=== PATIENT | female | born 1950 | race Caucasian/White ===

== ENCOUNTER 2022-08-31 11:45 | Observation (INO) | payer OTHER, MEDICARE, SELFPAY ==
[2022-08-31] VITALS (14 sets, daily range): BP systolic 104–164; BP diastolic 81–115; PULSE 68–96; RESP 13–23; TEMP 36.2–36.7; O2SAT 93–100; BMI 24.5
--- NOTE | 2022-08-31 12:08 | EKG12_ITS ---
Test Reason : EDEMA Blood Pressure : / mmHG Vent. Rate : 075 BPM Atrial Rate : 075 BPM P-R Int : 128 ms QRS Dur : 078 ms QT Int : 392 ms P-R-T Axes : 052 122 012 degrees QTc Int : 437 ms Normal sinus rhythm Possible Right ventricular hypertrophy Nonspecific ST abnormality Abnormal ECG Confirmed by CARLOS ALBERTO GARCIA, KRISTA ([id number]), associate professor of automation [employer] ([id number]) on 09/03/2022 10:50:01 A M Referred By: GWEN/SONIA Confirmed By:ETHAN CARCAMO MD
--- NOTE | 2022-08-31 12:10 | EDS_ITS ---
HPI History of Present Illness Chief Complaint: Edema Informant: patient Onset/Context/Timing Onset: Month(s) (1) Context: sudden Timing: Continuous Quality: Positive for Dyspnea on exertion Worsened by: Nothing Relieved by: - (Water pill) Associated Symptoms Negative for cough, rhinorrhea, post nasal drip, ear pain, fever, sore throat, chills or sweats Chest Pain: Positive for None Narrative Narrative: Patient presents with shortness of breath that has been getting worse over the last month. Patient states that her legs have gotten more swollen over the last month as well. Patient states her breathing is worse with going up stairs. Hong sheppard states she was started on a water pill and potassium recently. Patient states that helps a little bit. Patient states nothing makes her symptoms worse. Patient denies any fevers or chills. Patient denies any chest pain. Patient denies any nausea or vomiting. [facility] Medical History (Updated 08/31/22 @ 15:[address] Alessio Izquierdo, ) Arthritis Headaches, cluster History of cyst of breast Home Medications ibuprofen 200 mg capsule 200 mg PO Q6H 07/17/18 [History Last Taken Unknown] multivitamin (Daily Multi-Vitamin tablet) 1 tab PO DAILY 07/17/18 [History Last Taken Unknown] furosemide 20 mg tablet 20 mg PO DAILY 08/31/22 [History Last Taken Unknown] potassium chloride 20 mEq oral packet (Klor-Con) 20 meq PO DAILY 08/31/22 [History Last Taken Unknown] Allergy/AdvReac Type Severity Reaction Status Date / Time No Known Allergies Allergy Verified 08/31/22 12:07 Family History Other Hypertension Social History Smoking Status: Current every day smoker tobacco type: cigarettes alcohol intake: never substance use type: does not use what type of physical activity do you participate in: none ROS ROS ED Constitutional Constitutional ED: Denies chills or fever(s) Eyes Eyes: Denies blurry vision or change in vision ENT ENT ED: Denies rhinorrhea or sore throat Cardiovascular Cardiovascular: Denies chest pain or palpitations Respiratory/Chest Respiratory/Chest: Reports dyspnea and dyspnea on exertion; Denies cough Gastrointestinal Gastrointestinal: Denies nausea or vomiting Genitourinary Genitourinary ED: Denies dysuria or hematuria Musculoskeletal Musculoskeletal: Denies back pain or neck pain Integumentary Denies abscess or rash Neurologic Neurologic: Denies headache(s) or weakness Allergic/Immunologic Allergic/Immunologic ED: Denies mouth swelling or urticaria EXAM Physical Exam Const Vital Signs: 08/31/22 11:47 08/31/22 11:59 08/31/22 12:00 Temperature 97.1 F L Temperature Source Temporal Pulse Rate 82 79 Respiratory Rate 18 21 H Respiratory Effort Short of Breath Respiratory Depth Normal Respiratory Pattern Normal Blood Pressure 104/81 H 104/81 H Blood Pressure Mean 88 88 Pulse Ox 95 98 Oxygen Delivery Method Nasal Cannula Nasal Cannula Nasal Cannula Oxygen Flow Rate (L/min) 4 4 4 08/31/22 12:07 08/31/22 12:09 08/31/22 12:54 Temperature Temperature Source Pulse Rate 87 Respiratory Rate 19 H Respiratory Effort Short of Breath Respiratory Depth Respiratory Pattern Normal Blood Pressure 160/92 H Blood Pressure Mean 114 Pulse Ox 97 100 Oxygen Delivery Method Nasal Cannula Nasal Cannula Oxygen Flow Rate (L/min) 4 4 08/31/22 13:11 08/31/22 14:07 08/31/22 15:02 Temperature Temperature Source Pulse Rate 88 82 87 Respiratory Rate 21 H 22 H 23 H Respiratory Effort Respiratory Depth Respiratory Pattern Blood Pressure 157/115 H 162/97 H 153/99 H Blood Pressure Mean 129 118 117 Pulse Ox 100 98 Oxygen Delivery Method Nasal Cannula Nasal Cannula Nasal Cannula Oxygen Flow Rate (L/min) 4 4 4 08/31/22 16:06 08/31/22 16:29 Temperature 97.4 F L Temperature Source Temporal Pulse Rate 96 87 Respiratory Rate 13 15 Respiratory Effort Respiratory Depth Respiratory Pattern Blood Pressure 164/102 H 155/96 H Blood Pressure Mean 122 115 Pulse Ox 94 93 Oxygen Delivery Method Nasal Cannula Nasal Cannula Oxygen Flow Rate (L/min) 4 4 Positive well nourished and well developed General Appearance ED: well developed and NAD HEENT Reports moist mucous membranes Neck supple and no JVD Resp normal respiratory effort Auscultation: rales bilateral 1/3 way up Cardio regular rate and regular rhythm GI normal to inspection, nondistended, normoactive bowel sounds and non-tender Palpation: soft Extremity normal to inspection General Extremety ED: Yes edema and tenderness General Extremity: edema bilateral lower extremity Details: moderate Neuro oriented x3, CN's II-XII intact bilaterally and no sensory deficits noted Sensorium / Orientation: alert Motor Exam: strength 5/5 throughout Psych mental status grossly normal Skin no rashes or lesions noted MDM MDM MDM Narrative Medical decision making narrative: Differential diagnosis includes congestive heart failure, cardiac dysrhythmia, cardiac ischemia, pneumonia, pneumothorax, and peripheral edema. EKG will be obtained to assess for cardiac dysrhythmia and cardiac ischemia. CBC will be obtained to assess for leukocytosis and anemia. Basic metabolic profile will be obtained to assess for electrolyte abnormality and renal function. BNP will be obtained to assess for congestive heart failure. Chest x-ray will be obtained to assess for congestive heart failure and pneumonia. Lab Data Attestation: I reviewed the patient's lab results. Lab results narrative: CBC was reviewed. White blood cell count was within normal limits. Hemoglobin was 16.4 and hematocrit was 51.8. Basic metabolic profile was reviewed and was within normal limits. High-sensitivity troponin was reviewed and was slightly elevated at 142. BNP was reviewed and was elevated at 917.9. Labs: Laboratory Results - last 24 hr 08/31/22 08/31/22 08/31/22 11:56 11:56 11:56 WBC 5.8 RBC 5.08 Hgb 16.4 H Hct 51.8 H MCV 102.0 H MCH 32.3 H MCHC 31.7 L RDW Std Deviation 58.5 H RDW Coeff of Fausto 15.8 H Plt Count 290 MPV 9.7 Immature Gran % (Auto) 0.500 Neut % (Auto) 61.6 Lymph % (Auto) 28.1 Benson % (Auto) 8.6 Eos % (Auto) 0.7 Baso % (Auto) 0.5 Absolute Neuts (auto) 3.6 Absolute Lymphs (auto) 1.64 Nucleated RBC % 0 Sodium 136 Potassium 4.5 Chloride 102 Carbon Dioxide 32.0 Anion Gap 2 L BUN 17 Creatinine 0.88 Estim Creat Clear Calc 49.21 Est GFR (MDRD) Af Amer 82 Est GFR (MDRD) Non-Af 68 BUN/Creatinine Ratio 19.4 Glucose 93 Calcium 8.9 Troponin I High Sens 142 H* B-Natriuretic Peptide 917.9 H Radiography Chest X-Ray - ED: 1 View, Read by ED Physician, Read by Radiologist and Chronic Changes Diagnostic Testing: Clinical Impression(s) from Imaging Studies Chest X-Ray 08/31/22 12:16 IMPRESSION: Hyperinflation. Interstitial scarring. Electronically Signed: Torsten Murdock MD at 13:18 EDT , Portable 1 view chest x-ray was obtained. On my independent interpretation, lung smiley are hyperinflated with interstitial scarring. There is normal cardiac silhouette. Bony thorax is normal. There is no acute process noted. Radiologist also interpreted the x-ray and agrees. EKG Initial EKG: Attestation: I personally reviewed and interpreted this EKG as follows: Interpretation: Sinus Rhythm (75) and Non-Specific ST Changes Comments: EKG was obtained. On my independent interpretation, it showed a normal sinus rhythm with a rate of 75. SD interval, QRS interval, and QTc intervals were all normal. [place] was normal. There are nonspecific ST-T wave changes. Prior EKG tracings: not available for review Prior: No Prior Treatment and Re-Evaluation :: Patient was given a dose of Lasix here. Patient was given a dose of aspirin. Patient was advised of her findings. Patient was feeling better on reevaluation. Patient was having large amount of urine output. Patient was advised of the need for hospitalization. Patient is agreeable with this. Case was discussed with the hospitalist. She will be in to evaluate the patient for admission for congestive heart failure. Patient understands and is agreeable with the plan. All questions were answered. Discharge Plan Dx/Rx/DC Orders Clinical Impression: Congestive heart failure, Hypoxia Disposition Disposition: Acute Care Hospital [facility]
--- NOTE | 2022-08-31 12:16 | RAD_ITS ---
STUDY: X-RAY CHEST REASON FOR EXAM: Female, 72 years old. Dyspnea TECHNIQUE: PA and lateral views of the chest. COMPARISON: None. FINDINGS: EKG electrodes are seen. There are interstitial fibrotic changes of the lungs. There is no demonstrated pleural abnormality. Normal size heart. Normal mediastinum and mansoor. Normal visualized pulmonary arteries. Normal visualized aortic arch and descending thoracic aorta. There is demineralization of the osseous structures. Normal visualized ribs, clavicles, and shoulders. There is no demonstrated abnormality of the visualized soft tissue structures of the upper abdomen. RAD/Chest PA and Lateral IMPRESSION: Hyperinflation. Interstitial scarring. Electronically Signed: Torsten Murdock MD at 13:18 EDT ,
[2022-08-31 12:22] LABS: Absolute Lymphocyte Count 1.64 X10^3/uL (0.83-4.51); Absolute Neutrophil Count 3.6 X10^3/uL (2.0-7.7); Basophil# 0.03 X10^3/uL; Basophil% 0.5 % (0-1); Eosinophil# 0.04 X10^3/uL; Eosinophils% 0.7 % (0-5); Hematocrit 51.8 % (37-47); Hemoglobin 16.4 g/dL (12.0-15.0); Lymphocyte # 1.64 X10^3/ul (0.83-4.51); Lymphocyte % 28.1 % (19-41); Mean Corp Hgb Conc 31.7 g/dL (32-36); Mean Corpuscular Hgb 32.3 pg (27.0-32.0); Mean Platelet Vol. 9.7 fl (6.2-12.0); Monocyte% 8.6 % (0-10); NRBC Flagged by Analyzer 0 % (0-5); Neutrophil % 61.6 % (47-70); Platelet Count 290 K/mm3 (150-450); RBC Distribution Width CV 15.8 % (11.6-14.6); RBC Distribution Width SD 58.5 fl (35.1-43.9); Red Blood Count 5.08 M/mm3 (4.2-5.4); White Blood Count 5.8 K/mm3 (4.4-11.0)
[2022-08-31 12:40] LABS: Anion Gap 2 (5-15); BUN 17 mg/dL (7-18); BUN/Creat Ratio 19.4 RATIO (10-20); Calcium,Total 8.9 mg/dL (8.5-10.1); Chloride 102 mmol/L (98-107); Creatinine, Serum 0.88 mg/dL (0.55-1.02); EST Glomerular Filtration Rate 68 mL/min (>60); Est Glom Filt Rate - Afr Amer 82 mL/min (>60); Estimated Creatinine Clearance 49.21 ml/min; Glucose 93 mg/dL (74-106); Potassium 4.5 mmol/L (3.5-5.1); Sodium Level 136 mmol/L (136-145); Troponin-I HS 142 pg/mL (3.0-54.0)
[2022-08-31 12:42] LABS: BNP,B-Type NATRIURETIC PEPTIDE 917.9 pg/mL (0-100)
[2022-08-31] MEDS: Furosemide 40 MG/4 ML Vial IV (14:29)
[2022-08-31] MEDS: Aspirin 81 MG TAB.CHEW 324 MG PO (16:32)
--- NOTE | 2022-08-31 17:32 | PCM.HP.STD ---
HPI - General General Date of Admission: 08/31/22 Date of Service: 08/31/22 Chief Complaint: Edema HPI Narrative KATALINA BIGGS, is a 72 F with no significant PMH who presents to the ED from her PCP's office due to hypoxia. The patient reports she hasn't had a doctor in several years. She went to [place] ED last month on July 25 with complaints of lower extremity edema which had been going on for about a week prior. She was prescribed lasix 20mg daily and oral potassium and discharged home. The patient reports she completed the prescription and did notice improvement in her symptoms while taking it. Once she ran out of the prescription, however, she noticed the leg swelling was worse again. The patient denied any other symptoms, however, upon further questioning, admitted to feeling more short of breath with walking up the 7 stairs to get to work in the mornings. The patient reports that has been going on for the same time period. She has not been checking her weights at all. She reports she has recently been trying to monitor her sodium intake. The patient reports she went to an urgent care on 08/17 and had her prescription refilled. She went to see Dr. Kimball this morning to establish care. While in the office, the patient was noted to be severely hypoxic, saturating in the 70s-80s with ambulation and low 80s with rest. She was then transferred to the hospital for further management. In the ED, the patient was given a dose of Lasix. Labs suggested a new onset CHF and she was admitted for further management. The patient reports she does feel better with the lasix and has been voiding well. [facility] Medical History (Updated 08/31/22 @ 17:[address] Ekaterina Gao MD) Arthritis Headaches, cluster History of cyst of breast Home Medications ibuprofen 200 mg capsule 400 mg PO Q6H 07/17/18 [History Last Taken 08/31/22 09:00] multivitamin (Daily Multi-Vitamin tablet) 1 tab PO DAILY 07/17/18 [History Last Taken 08/31/22 09:00] furosemide 20 mg tablet 20 mg PO DAILY 08/31/22 [History Last Taken 08/31/22 09:00] potassium chloride 20 mEq oral packet (Klor-Con) 20 meq PO DAILY 08/31/22 [History Last Taken 08/31/22 09:00] Allergy/AdvReac Type Severity Reaction Status Date / Time No Known Allergies Allergy Verified 08/31/22 12:07 Family History (Updated 08/31/22 @ 17:[address] Ekaterina Gao MD) Other No pertinent family history Surgical History (Updated 08/31/22 @ 17:[address] Ekaterina Gao MD) History of surgical procedure Social History (Updated 08/31/22 @ 17:[address] Ekaterina Gao MD) household members: none current occupational status: employed current occupation: Works at [employer] Smoking Status: Current every day smoker tobacco type: cigarettes Smoking packs per day: 0.5 Smoking cigarettes per day: 10.0 Years smoked: 50 Smoking pack-years: 25.00 Electronic Cigarette Use: not used alcohol intake: never substance use type: does not use what type of physical activity do you participate in: none do you feel safe at home: Yes ROS Constitutional Constitutional: Denies change in weight, fatigue, fever(s) or weakness Eyes Eyes: Denies change in vision ENT HEENT: Reports headache(s); Denies abnormal hearing, nasal congestion or sore throat Cardiovascular Cardiovascular: Reports dyspnea on exertion and edema; Denies chest pain, lightheadedness, palpitations or syncope Respiratory/Chest Respiratory/Chest: Reports cough and dyspnea; Denies productive cough or wheezing Gastrointestinal Gastrointestinal: Denies abdominal pain, constipation, diarrhea, nausea or vomiting Genitourinary Genitourinary: Denies burning urination, difficulty urinating or dysuria Neurologic Neurologic: Reports headache(s); Denies abnormal gait, dizziness, numbness or tingling Psychiatric Psychiatric: Denies anxiety, depression or suicidal ideation Vital Signs Vital Signs Vital Signs: 08/31/22 11:47 08/31/22 11:59 08/31/22 12:00 Temperature 97.1 F L Temperature Source Temporal Pulse Rate 82 79 Respiratory Rate 18 21 H Respiratory Effort Short of Breath Respiratory Depth Normal Respiratory Pattern Normal Blood Pressure 104/81 H 104/81 H Blood Pressure Mean 88 88 Pulse Ox 95 98 Oxygen Delivery Method Nasal Cannula Nasal Cannula Nasal Cannula Oxygen Flow Rate (L/min) 4 4 4 08/31/22 12:07 08/31/22 12:09 08/31/22 12:54 Temperature Temperature Source Pulse Rate 87 Respiratory Rate 19 H Respiratory Effort Short of Breath Respiratory Depth Respiratory Pattern Normal Blood Pressure 160/92 H Blood Pressure Mean 114 Pulse Ox 97 100 Oxygen Delivery Method Nasal Cannula Nasal Cannula Oxygen Flow Rate (L/min) 4 4 08/31/22 13:11 08/31/22 14:07 08/31/22 15:02 Temperature Temperature Source Pulse Rate 88 82 87 Respiratory Rate 21 H 22 H 23 H Respiratory Effort Respiratory Depth Respiratory Pattern Blood Pressure 157/115 H 162/97 H 153/99 H Blood Pressure Mean 129 118 117 Pulse Ox 100 98 Oxygen Delivery Method Nasal Cannula Nasal Cannula Nasal Cannula Oxygen Flow Rate (L/min) 4 4 4 08/31/22 16:06 08/31/22 16:29 Temperature 97.4 F L Temperature Source Temporal Pulse Rate 96 87 Respiratory Rate 13 15 Respiratory Effort Respiratory Depth Respiratory Pattern Blood Pressure 164/102 H 155/96 H Blood Pressure Mean 122 115 Pulse Ox 94 93 Oxygen Delivery Method Nasal Cannula Nasal Cannula Oxygen Flow Rate (L/min) 4 4 Weight Weight: 138 lb 3.677 oz Body Mass Index (BMI) 24.5 Physical Exam Const alert, oriented x3 and no apparent distress General Appearance: cooperative HEENT normocephalic, head/scalp atraumatic and moist oral mucous membranes Eyes PERRL and conjunctivae normal Resp normal respiratory effort and no use of accessory muscles Auscultation: Negative for crackles, rales, rhonchi or wheezes Cardio regular rate and regular rhythm; Negative for no murmurs GI normal to inspection, nondistended, normoactive bowel sounds, soft to palpation and non-tender Extremity Extremity Narrative: 1+ pitting edema in bilateral lower extremities, mild tenderness to palpation Clubbing of fingers bilaterally Neuro oriented x3 Sensorium / Orientation: awake, alert, oriented to person, oriented to place and oriented to time Psych affect normal Results Lab / Micro Data Attestation: I reviewed the patient's lab results. Result Diagrams: 08/31/22 11:56 08/31/22 11:56 Labs: Laboratory Results - last 24 hr 08/31/22 11:56: WBC 5.8, RBC 5.08, Hgb 16.4 H, Hct 51.8 H, MCV 102.0 H, MCH 32.3 H, MCHC 31.7 L, RDW Std Deviation 58.5 H, RDW Coeff of Fausto 15.8 H, Plt Count 290, MPV 9.7, Immature Gran % (Auto) 0.500, Neut % (Auto) 61.6, Lymph % (Auto) 28.1, Kerr % (Auto) 8.6, Eos % (Auto) 0.7, Baso % (Auto) 0.5, Absolute Neuts (auto) 3.6, Absolute Lymphs (auto) 1.64, Nucleated RBC % 0 08/31/22 11:56: Sodium 136, Potassium 4.5, Chloride 102, Carbon Dioxide 32.0, Anion Gap 2 L, BUN 17, Creatinine 0.88, Estim Creat Clear Calc 49.21, Est GFR (MDRD) Af Amer 82, Est GFR (MDRD) Non-Af 68, BUN/Creatinine Ratio 19.4, Glucose 93, Calcium 8.9, Troponin I High Sens 142 H* 08/31/22 11:56: B-Natriuretic Peptide 917.9 H Radiology Impression Chest X-Ray 08/31/22 12:16 IMPRESSION: Hyperinflation. Interstitial scarring. Electronically Signed: Torstne Murdock MD at 13:18 EDT , Assessment & Plan Assessment/Plan (1) New onset of congestive heart failure: PLAN: The patient demonstrates findings suggestive of new onset CHF with an elevated BNP and troponin level. EKG was done in the ED which showed NSR with possible RVH and nonspecific T waves abnormalities. Will admit to observation. Will cycle troponins and place the patient on IV lasix. Will order an echo for the morning to assess heart function. The patient's blood pressure is slightly elevated, will also initiate lisinopril and aspirin. Will get follow up labs including a lipid panel in am. Cardiac diet and strict I&Os with daily weights. (2) Acute respiratory failure with hypoxia: PLAN: As above. The patient is currently saturating well on 4L. Will wean as able. She does have hyperinflation and a long history of smoking suggestive of COPD. She will benefit from a PFT as an outpatient. (3) Elevated blood pressure reading: PLAN: As above. Will monitor blood pressure closely and adjust as necessary. Discussed monitoring salt intake. PLAN: Plan FULL CODE - patient wishes to think about code status DVT prophylaxis - Encourage ambulation Disposition - The patient is hemodynamically stable and anxious to go home when able. Will treat as above. If she remains stable, I anticipate she may be able to be discharged home in 24-48 hours. Charges/Coding Visit Charges Inpatient E&M: 53503 Init Hosp L2
--- NOTE | 2022-08-31 17:39 | ECHOD_ITS ---
Reason For Study: CONGESTIVE HEART FAILURE Procedure This was a 2D Doppler, Color Flow transthoracic echocardiogram. Exam performed portable in patient room. Left Ventricle Normal LV size. The estimated ejection fraction is 60 %. No evidence for diastolic dysfunction. No regional wall motion abnormalities noted. Right Ventricle Severely dilated right ventricle. Mildly decreased right ventricular systolic function. Atria Normal left atrium. The right atrium is mildly enlarged. No doppler evidence for ASD. Mitral Valve There is no mitral valve stenosis. No mitral valve insufficiency. Tricuspid Valve There is no tricuspid stenosis. Mild tricuspid valve insufficiency. Pulmonary artery systolic pressure is 30-35 mmHg. Aortic Valve Trisinus/trileaflet aortic valve. There is no aortic stenosis. No aortic valve insufficiency. Pulmonic Valve There is no pulmonic valvular stenosis. No pulmonic valve insufficiency. Great Vessels Normal aortic root. Pericardium/Pleural Trivial pericardial effusion. MMode/2D Measurements & Calculations LVIDd: 3.7 cm IVSd: 1.4 cm Ao root diam: 3.0 cm LVIDs: 2.2 cm LVPWd: 1.1 cm RVDd: 3.9 cm FS: 40.9 % LAV(MOD-bp): 28.5 ml LVAd ap4: 16.7 cm2 LVAd ap2: 18.7 cm2 LAV(MOD-bp) Indexed: 17.3 ml/m2 LVLd ap4: 6.1 cm LVLd ap2: 6.6 cm LAV(MOD-sp2): 24.0 ml EDV(MOD-sp4): 38.6 ml EDV(MOD-sp2): 43.5 ml LAV(MOD-sp4): 31.4 ml EDV(sp4-el): 38.5 ml EDV(sp2-el): 45.0 ml LVAs ap4: 9.1 cm2 LVAs ap2: 10.6 cm2 LVLs ap4: 5.3 cm LVLs ap2: 5.6 cm ESV(MOD-sp4): 14.5 ml ESV(MOD-sp2): 19.2 ml ESV(sp4-el): 13.4 ml ESV(sp2-el): 16.9 ml EF(MOD-sp4): 62.5 % EF(MOD-sp2): 55.8 % EF(sp4-el): 65.3 % SV(MOD-sp4): 24.1 ml SV(MOD-sp2): 24.3 ml SV(sp4-el): 25.2 ml LA dimension(2D): 3.5 cm LA A4 area: 14.5 cm2 RA A4 area: 15.9 cm2 Time Measurements MV dec time: 0.30 sec Doppler Measurements & Calculations MV E max cameron: 46.1 cm/sec Lat Peak E' Cameron: 6.0 cm/sec Med Peak E' Cameron: 6.5 cm/sec MV A max cameron: 81.3 cm/sec E/E' lat: 7.7 E/E' med: 7.0 MV E/A: 0.57 MV dec slope: 155.4 cm/sec2 Ao V2 max: 137.2 cm/sec LV V1 max: 102.4 cm/sec Ao max P.5 mmHg LV V1 max P.2 mmHg Ao V2 mean: 88.6 cm/sec LV V1 mean P.7 mmHg Ao mean P.6 mmHg LV V1 mean: 59.1 cm/sec Ao V2 VTI: 23.6 cm LV V1 VTI: 15.1 cm AV (velocity ratio): 0.64 PA V2 max: 73.7 cm/sec TR max cameron: 277.2 cm/sec TR max P.7 mmHg ECHO/Echo Complete Interpretation Summary The estimated ejection fraction is 60 %. No evidence for diastolic dysfunction. The right atrium is mildly enlarged. Severely dilated right ventricle. Mildly decreased right ventricular systolic function Mild tricuspid valve insufficiency. Trivial pericardial effusion. Ordering Physician: Ekaterina Gao Performed By: Yessy Garay RDCS
[2022-08-31] MEDS: Lisinopril 10 MG Tablet PO (18:31)
[2022-08-31 19:02] LABS: Troponin-I HS 125 pg/mL (3.0-54.0)
[2022-09-01] VITALS (8 sets, daily range): BP systolic 119–136; BP diastolic 71–92; PULSE 75–96; RESP 16–18; TEMP 36.2–37; O2SAT 90–97; BMI 24.5
[2022-09-01 06:06] LABS: Absolute Lymphocyte Count 2.08 X10^3/uL (0.83-4.51); Absolute Neutrophil Count 3.9 X10^3/uL (2.0-7.7); Basophil# 0.04 X10^3/uL; Basophil% 0.6 % (0-1); Eosinophil# 0.12 X10^3/uL; Eosinophils% 1.8 % (0-5); Hematocrit 50.1 % (37-47); Hemoglobin 15.8 g/dL (12.0-15.0); Lymphocyte # 2.08 X10^3/ul (0.83-4.51); Lymphocyte % 30.5 % (19-41); Mean Corp Hgb Conc 31.5 g/dL (32-36); Mean Corpuscular Hgb 31.9 pg (27.0-32.0); Mean Platelet Vol. 9.4 fl (6.2-12.0); Monocyte# 0.65 X10^3/uL; Monocyte% 9.5 % (0-10); NRBC Flagged by Analyzer 0 % (0-5); Neutrophil # 3.91 X10^3/uL (2.7-7.7); Neutrophil % 57.5 % (47-70); Platelet Count 299 K/mm3 (150-450); RBC Distribution Width CV 15.5 % (11.6-14.6); RBC Distribution Width SD 56.3 fl (35.1-43.9); Red Blood Count 4.96 M/mm3 (4.2-5.4); White Blood Count 6.8 K/mm3 (4.4-11.0)
[2022-09-01 06:32] LABS: ALB/GLOB Ratio 0.6 RATIO (0.9-2.4); AST(SGOT) 23 U/L (15-37); Alanine Aminotransfer ALT/SGPT 35 U/L (13-56); Albumin, Serum 2.5 g/dL (3.2-5.0); Alkaline Phosphatase 118 U/L (45-117); Anion Gap 5 (5-15); BUN 18 mg/dL (7-18); BUN/Creat Ratio 22.8 RATIO (10-20); Calcium,Total 8.4 mg/dL (8.5-10.1); Chloride 106 mmol/L (98-107); Cholesterol 106 mg/dL (200); Creatinine, Serum 0.79 mg/dL (0.55-1.02); EST Glomerular Filtration Rate 76 mL/min (>60); Est Glom Filt Rate - Afr Amer 92 mL/min (>60); Globulin 4.2 g/dL (2.2-4.2); Glucose 87 mg/dL (74-106); High Density Lipoprotein 32 mg/dL; Magnesium 2.4 mg/dL (1.6-2.6); Potassium 4.6 mmol/L (3.5-5.1); Protein, Total 6.7 g/dL (6.4-8.2); Sodium Level 139 mmol/L (136-145); Triglycerides 56 mg/dL; Very Low Density Lipoprotein 11 mg/dL (5-40)
[2022-09-01 07:47] LABS: Troponin-I HS 111 pg/mL (3.0-54.0)
[2022-09-01] MEDS: Furosemide 40 MG/4 ML Vial IV ×2 (08:16→23:35)
[2022-09-01] MEDS: Potassium Chloride Oral Tablet 20 MEQ PO (08:16)
[2022-09-01] MEDS: Lisinopril 10 MG Tablet PO (08:16)
[2022-09-01] MEDS: Multivitamins,Therapeutic Tablet 1 TABLET PO (08:16)
[2022-09-01] MEDS: Aspirin E.C. 81 MG Tablet PO (08:16)
--- NOTE | 2022-09-01 11:27 | PN_ITS ---
Subjective Subjective Patient seen and examined. He was admitted for [facility] office on account of hypoxia. She had been having lower extremity edema as well and was prescribed p.o. Lasix but said his symptoms have not improved. The swelling worsened after she stopped taking the Lasix. She had exertional dyspnea as well. She went to see a PCP to establish care and because she was hypoxic she was sent into the ED. She was saturating at 70 to 80% with ambulation in the PCPs office. BNP was elevated on admission. Patient tells me she feels good this morning. She feels her breathing is improving and states he does not have any while she is wearing oxygen. She denies any chest pain or palpitations, dizziness, nausea vomiting or any other symptoms. Review of systems otherwise negative. She has remained hemodynamically stable. Objective Data Objective Data Vital Signs: Vital Signs Temp Pulse Resp BP Pulse Ox O2 Del Method O2 Flow Rate 97.8 F 88 18 136/71 H 97 Room Air 4 09/01/22 10:00 09/01/22 10:00 09/01/22 10:00 09/01/22 10:09/01/22 10:09/01/22 10:00 09/01/22 07:36 Oxygen Flow Rate (L/min) 4 Oxygen Delivery Method Room Air Weight: 138 lb 14.259 oz Body Mass Index (BMI) 24.5 Intake & Output: Intake and Output for Last 24 Hours 08/30/22 08/31/22 09/01/22 23:59 23:59 23:59 Intake Total 320 / 320 Output Total 1800 / 1800 Balance -1480 / -1480 Lab / Micro Data Result Diagrams: 09/01/22 05:45 09/01/22 05:45 Labs: Laboratory Results - last 24 hr 08/31/22 11:56: WBC 5.8, RBC 5.08, Hgb 16.4 H, Hct 51.8 H, MCV 102.0 H, MCH 32.3 H, MCHC 31.7 L, RDW Std Deviation 58.5 H, RDW Coeff of Fausto 15.8 H, Plt Count 290, MPV 9.7, Immature Gran % (Auto) 0.500, Neut % (Auto) 61.6, Lymph % (Auto) 28.1, [place] % (Auto) 8.6, Eos % (Auto) 0.7, Baso % (Auto) 0.5, Absolute Neuts (auto) 3.6, Absolute Lymphs (auto) 1.64, Nucleated RBC % 0 08/31/22 11:56: Sodium 136, Potassium 4.5, Chloride 102, Carbon Dioxide 32.0, Anion Gap 2 L, BUN 17, Creatinine 0.88, Estim Creat Clear Calc 49.21, Est GFR (MDRD) Af Amer 82, Est GFR (MDRD) Non-Af 68, BUN/Creatinine Ratio 19.4, Glucose 93, Calcium 8.9, Troponin I High Sens 142 H* 08/31/22 11:56: B-Natriuretic Peptide 917.9 H 08/31/22 18:20: Troponin I High Sens 125 H* 09/01/22 05:45: WBC 6.8, RBC 4.96, Hgb 15.8 H, Hct 50.1 H, MCV 101.0 H, MCH 31.9, MCHC 31.5 L, RDW Std Deviation 56.3 H, RDW Coeff of Fausto 15.5 H, Plt Count 299, MPV 9.4, Immature Gran % (Auto) 0.100, Neut % (Auto) 57.5, Lymph % (Auto) 30.5, [place] % (Auto) 9.5, Eos % (Auto) 1.8, Baso % (Auto) 0.6, Absolute Neuts (auto) 3.9, Absolute Lymphs (auto) 2.08, Nucleated RBC % 0 09/01/22 05:45: Sodium 139, Potassium 4.6, Chloride 106, Carbon Dioxide 28.0, Anion Gap 5, BUN 18, Creatinine 0.79, Estim Creat Clear Calc 43.30, Est GFR (MDRD) Af Amer 92, Est GFR (MDRD) Non-Af 76, BUN/Creatinine Ratio 22.8 H, Glucose 87, Calcium 8.4 L, Magnesium 2.4, Total Bilirubin 0.80, AST 23, ALT 35, Alkaline Phosphatase 118 H, Total Protein 6.7, Albumin 2.5 L, Globulin 4.2, Albumin/Globulin Ratio 0.6 L, Triglycerides 56, Cholesterol 106, LDL Cholesterol 63, VLDL Cholesterol 11, HDL Cholesterol 32 L 09/01/22 05:45: Troponin I High Sens 111 H Radiography Diagnostic Testing: Radiology Impression Chest X-Ray 08/31/22 12:16 IMPRESSION: Hyperinflation. Interstitial scarring. Electronically Signed: Torsten Murdock MD at 13:18 EDT , Physical Exam Const alert, oriented x3 and no apparent distress General Appearance: cooperative HEENT normocephalic, head/scalp atraumatic, moist oral mucous membranes and oropharynx normal Eyes PERRL and EOMs intact bilaterally Lymph Lymphatic: no lymphadenopathy noted and no lymphedema noted Resp Resp Narrative: mildly diminished breath sounds bibasally, no wheezes, few crackles. On room air. Cardio regular rate, regular rhythm, S1 normal heart sound, S2 normal heart sound and no murmurs GI normal to inspection, nondistended, normoactive bowel sounds, soft to palpation and non-tender Extremity normal capillary refill and no clubbing, cyanosis or edema Extremity Narrative: extensive bilateral clubbing of upper extremities General Extremity: clubbing Skin General Skin Exam: no breakdown Neuro CN's II-XII intact bilaterally, no focal motor deficits, no sensory deficits noted and deep tendon reflexes 2+ bilaterally Motor Exam: strength 5/5 throughout Psych thought process normal and cooperative Appearance: appropriate Assessment & Plan Assessment/Plan (1) Acute respiratory failure with hypoxia: (2) New onset of congestive heart failure: (3) Congestive heart failure: PLAN: Plan #Hypoxia due to new onset heart failure * States her breathing is much more improved now. She was on 2 L of oxygen at night this morning but has been weaned down to room air. * 2D echo ordered. She has been diuresed with IV Lasix. * I do think patient also likely has COPD as chest x-ray showed hyperinflation and she has extensive clubbing of both hands. * Continue diuresis with IV Lasix. Will benefit from pulmonary function tests on outpatient basis and will need to see pulmonology for that to formally diagnose her with COPD * Breathing treatments with bronchodilators. * BNP was elevated at 917.9. * * #Elevated troponin: * Initial troponin was 142 and trended down to 111. * This was likely due to hypoxia. 2D echo ordered. May also be due to heart failure. * I do think it is reasonable to get a cardiology consult but I will do a CTA of the chest to rule out any possible PE. * she will also benefit from stress test to evaluate the heart * #Elevated blood pressure: Improved. Started on lisinopril #Probable COPD. Likely contributing to her shortness of breath. Will start on IV Solu-Medrol. Breathing treatments of bronchodilators. DVT prophylaxis: start lovenox Charges/Coding Visit Charges Inpatient E&M: 48620 Subs Hosp L2
--- NOTE | 2022-09-01 11:46 | CT_ITS ---
STUDY: CTA CHEST REASON FOR EXAM: Female, 72 years old. pulmonary embolism RADIATION DOSAGE (If Supplied By Facility): CTDIvol = ( 9.41 ) mGy, DLP = ( 173.50 ) mGycm TECHNIQUE: The examination was performed with the intravenous administration of IV 100mL Isovue-370. Post-processing of the angiographic images was performed, with multiplanar reformation and 3D reconstruction. Individualized dose optimization techniques were used for this CT. COMPARISON: FINDINGS: Normal enhancement of the main pulmonary artery and right and left pulmonary arteries. Normal enhancement of the bilateral peripheral pulmonary arteries. There is no demonstrated pulmonary embolism. Normal thoracic aorta and visualized great vessels. There is no demonstrated aortic dissection. Cardiomegaly. Small pericardial effusion versus mild pericardial thickening. Normal mediastinum. Normal hilar regions. Normal visualized trachea and bronchi. The lungs are well expanded. There is a mild biapical fibrosis. There is moderate centrilobular emphysema within the upper lobes. There is moderate fibrosis peripherally in the right middle lobe and lingula with moderate centrilobular emphysema in the right middle lobe and lingula. There is a confluent density in the right lower lobe posteriorly 2.71 cm which could represent dense infiltrate or mass. There is a severe bronchiectasis and fibrosis throughout both lower lobes. Normal pleura. There is a breast tissue versus mass within the left breast measuring 2.98 x 1.91 cm. Wedge deformities T9 and T11 with degenerative changes mid and lower thoracic spine. Normal visualized upper abdomen. CT/CTA Chest W/WO Contrast IMPRESSION: No demonstrated pulmonary embolism or arterial dissection. COPD and pulmonary fibrosis detailed above. Right lower lobe mass versus dense infiltrate 2.71 cm. Mild cardiomegaly. Small pericardial effusion versus mild pericardial thickening. Moderate wedge deformities T9 and T11 with underlying degenerative changes. Electronically Signed: Gerardo Francis MD, MAYE at 13:54 EDT ,
--- NOTE | 2022-09-01 13:55 | CASEMGMT ---
RN?CM?CIRCUIT BREAKER MECHANIC?CM?to room to meet with patient for initial transition planning/care coordination?assessment.?RN?CM?introduced self and role at [facility].? Pt voices understanding and consents to?assessment?at this time.? Pt sitting up in chair in no distress at this time.? Pt is A/O at this time and answers all questions appropriately.?? Care providers, pharmacy, and demographics verified/updated at this time. PCP: Dr Teresa Kimball. Pt was just in to see her yesterday for establishment of care and was sent to ED d/t hypoxia. Specialists: none Preferred Pharmacy: [facility] Insurance: LUTHER Godwin Prescription Benefit:?Yes Living Will/HPOA:?Pt does not currently have LW/HCPOA and declines info at this time.? LNOK: No contacts listed and pt does not want anyone listed and does not want to list any emergency contact either. Living Arrangements: Lives alone in one-story home.. Indep. Works full-time @ [employer] Transportation:?Pt states drives self and states no transportation concerns at this time.? DME: ? Denies using any DME. No home O2 and does not have a pulse ox. Pt made aware [employer] is affiliated w/[facility] and is th only local DME co that does new Home O2 set-up on the W/E. Pt is agreeable to [employer], should she qualify for Home O2 @ dc. Discussed home O2 set-up process. Pt does not have a pulse ox. RN ANEL recommended she get one and she states is affordable to buy. HHC/SNF: No hx of either. No HHC needs identified. Discussed Pt Link and pt agreeable to consult. Pt wishes to return home and states has no concerns with going home at time of discharge.? Follow for home oxygen needs and any further discharge planning/needs.? Pt voices no further concerns/needs at this time.? Advised pt to ask for?CM?if any further questions/concerns/needs arise.? Voices understanding. PLAN:??Home. Follow for possible Home O2 Pt Link consult placed./New onset CHF DGialacie BSN?RN?CM
[2022-09-01] MEDS: Methylprednisolone Sod Succ 40 MG/ML VIAL IV ×2 (16:38→23:35)
--- NOTE | 2022-09-01 17:28 | CASEMGMT ---
JARAD TAM NOTE: [facility] form explained re: Observation status for treatment of new onset CHF, hypoxia.? Explained hospitalization will be paid per?her insurance policy for Outpatient billing?and condition will continue to be evaluated for Inpt necessity. Also let pt know that [facility] sends paper in the billing packet with their phone number if questions arise. Discussed Pharmacy section of [employer] form and self administered medication guideline.? Pt verbalizes understanding and does not have further questions. ?Form signed, copy made and placed in chart, and original given to pt. Sandy OROZCO RN CM
[2022-09-01] MEDS: 0.9% Saline Lock 10 ML Syringe IV (23:44)
[2022-09-02] VITALS (7 sets, daily range): BP systolic 114–118; BP diastolic 73–83; PULSE 89–92; RESP 16–18; TEMP 36.6–36.9; O2SAT 91–96; BMI 24.2
[2022-09-02 06:16] LABS: Absolute Lymphocyte Count 0.87 X10^3/uL (0.83-4.51); Absolute Neutrophil Count 4.9 X10^3/uL (2.0-7.7); Basophil# 0.01 X10^3/uL; Basophil% 0.2 % (0-1); Hematocrit 50.9 % (37-47); Hemoglobin 16.3 g/dL (12.0-15.0); Lymphocyte # 0.87 X10^3/ul (0.83-4.51); Lymphocyte % 14.7 % (19-41); Mean Corpuscular Hgb 32.3 pg (27.0-32.0); Mean Corpuscular Volume 100.8 fL (81-99); Mean Platelet Vol. 9.9 fl (6.2-12.0); Monocyte# 0.09 X10^3/uL; Monocyte% 1.5 % (0-10); NRBC Flagged by Analyzer 0 % (0-5); Neutrophil # 4.94 X10^3/uL (2.7-7.7); Neutrophil % 83.3 % (47-70); Platelet Count 307 K/mm3 (150-450); RBC Distribution Width CV 15.2 % (11.6-14.6); RBC Distribution Width SD 55.8 fl (35.1-43.9); Red Blood Count 5.05 M/mm3 (4.2-5.4); White Blood Count 5.9 K/mm3 (4.4-11.0)
[2022-09-02] MEDS: Methylprednisolone Sod Succ 40 MG/ML VIAL IV (06:22)
[2022-09-02] MEDS: 0.9% Saline Lock 10 ML Syringe IV (06:23)
[2022-09-02 06:43] LABS: Anion Gap 5 (5-15); BUN 21 mg/dL (7-18); Calcium,Total 8.7 mg/dL (8.5-10.1); Chloride 103 mmol/L (98-107); Creatinine, Serum 0.81 mg/dL (0.55-1.02); EST Glomerular Filtration Rate 75 mL/min (>60); Est Glom Filt Rate - Afr Amer 90 mL/min (>60); Estimated Creatinine Clearance 53.46 ml/min; Glucose 145 mg/dL (74-106); Potassium 4.3 mmol/L (3.5-5.1); Sodium Level 137 mmol/L (136-145)
[2022-09-02] MEDS: Potassium Chloride Oral Tablet 20 MEQ PO (08:53)
[2022-09-02] MEDS: Aspirin E.C. 81 MG Tablet PO (08:54)
[2022-09-02] MEDS: Multivitamins,Therapeutic Tablet 1 TABLET PO (08:54)
[2022-09-02] MEDS: Furosemide 40 MG/4 ML Vial IV (08:55)
[2022-09-02] MEDS: Lisinopril 10 MG Tablet PO (08:56)
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
--- NOTE | 2022-09-02 13:16 | DS.PCM_ITS ---
Providers Date of Admission: 08/31/22 Date of Discharge: 09/02/22 Primary Care Physician: Vickie Kimball DO Consultations 09/02/22 09:54 Consult: Maxillofacial Prosthodontist / Pulmonary Medicine Routine Consulting Provider: Pulmonary Medicine coleen Iqbal Reason for Consult: right upper lobe lung mass EMERGENT Consult: No MD Notified: Yes Date Notified: 09/02/22 Time Notified: 09:54 Method of Notification: Text Reason For Visit: NEW ONSET CHF Diagnosis Discharge Diagnosis (1) Pulmonary fibrosis determined by high resolution computed tomography: Status: Acute Code(s): J84.10 - Pulmonary fibrosis, unspecified Plan #Hypoxia due to new onset heart failure * States her breathing is much more improved now. She was on 2 L of oxygen at night this morning but has been weaned down to room air. * 2D echo ordered. She has been diuresed with IV Lasix. * I do think patient also likely has COPD as chest x-ray showed hyperinflation and she has extensive clubbing of both hands. * Continue diuresis with IV Lasix. Will benefit from pulmonary function tests on outpatient basis and will need to see pulmonology for that to formally diagnose her with COPD * Breathing treatments with bronchodilators. * BNP was elevated at 917.9. * * #Elevated troponin: * Initial troponin was 142 and trended down to 111. * This was likely due to hypoxia. 2D echo ordered. May also be due to heart failure. * I do think it is reasonable to get a cardiology consult but I will do a CTA of the chest to rule out any possible PE. * she will also benefit from stress test to evaluate the heart * #Elevated blood pressure: Improved. Started on lisinopril #Probable COPD. Likely contributing to her shortness of breath. Will start on IV Solu-Medrol. Breathing treatments of bronchodilators. DVT prophylaxis: start lovenox Medications at Discharge Home Medications ibuprofen 200 mg capsule 400 mg PO Q6H 07/17/18 multivitamin (Daily Multi-Vitamin tablet) 1 tab PO DAILY 07/17/18 potassium chloride 20 mEq oral packet (Klor-Con) 20 meq PO DAILY 08/31/22 aspirin 81 mg tablet,delayed release 81 mg PO DAILY@0800 #30 tabs 09/02/22 furosemide 40 mg tablet (Lasix) 40 mg PO DAILY #30 tabs 06/18/23 lisinopril 10 mg tablet 10 mg PO DAILY #30 tabs 09/02/22 potassium chloride 20 mEq tablet,extended release(part/cryst) (Klor-Con M) 20 meq PO DAILY #30 tabs 09/02/22 prednisone 20 mg tablet 40 mg PO DAILY #10 tabs 09/02/22 Hospital Course Operations None Procedures 2-D Echocardiogram Summary of Care Provided Minutes Spent on Discharge: 55 Hospital Course: Patient is a 72-year-old female with no significant past medical history who was admitted through the ED on 08/31/2022 from her PCPs office with a complaint of hypoxia. She had not seen a doctor in many years and had gone to the ED at an outside hospital about a month prior to admission with lower extremity edema which have been going on for about a week. She was given Lasix and potassium and discharged home. She took the Lasix but still felt she had lower extremity swelling so she decided to come in to be examined. She also has shortness of breath which was worsened by exertion and had been going on for a while. Patient had a history of smoking and says she has been smoking about 1 pack luis enrique y since she was 19 years. She went see her PCP to establish care and was noted to be severely hypoxic, saturating in the 70s and 80s with ambulation in the low 80s at rest. She was brought into the ED where her BNP was elevated. Troponins were not elevated. She was admitted and managed for hypoxia due to acute heart failure with unknown EF at that time. She was diuresed with IV Lasix. CTA of the chest showed no demonstrated PE or arterial dissection and showed COPD and pulmonary fibrosis as well as a right lower lobe mass versus dense infiltrate at 2.71 cm and mild cardiomegaly as well as small pericardial effusion. He also had moderate wedge deformities at T9 and T11. There was also a breast tissue versus mass within the left breast measuring 2.98 x 1.91 cm. Patient had 2D echo which showed EF of 60% with no evidence of diastolic dysfunction and severely dilated right ventricle and mildly enlarged right atrium as well as mildly decreased right ventricular systolic function and trivial pericardial effusion. She was diuresed with IV Lasix and also given breathing treatments with bronchodilators. Shortness of breath improved and she felt much better. Pulmonology was consulted on account of the CT scan findings. Pulmonology reviewed patient and per Dr. Pereira, she had had a similar admission in the right lower lobe of the lung from back in 2019 and was probably fibrotic atelectatic area. Her presumed right heart failure was likely due to prolonged undiagnosed hypoxia and fibrosis from COPD and lung fibrosis. Patient was discharged on p.o. Lasix, p.o. potassium, p.o. prednisone and is to follow-up with her primary care doctor. She is also to follow-up with pulmonology on outpatient basis. The left breast mass was discussed with general surgery Dr. Florentino. General surgeon took patient's name in detail so that she would be contacted to set up an appointment in the office. Patient also counseled that she would need to set up an appointment with general surgery within one week, and for mammogram and ultrasound to be ordered on outpatient basis by her PCP or general surgery to further investigate this breast mass. Patient was seen and examined prior to discharge. She felt much better and was on room air. She wanted to be discharged home. She had no other active complaints and review of systems otherwise negative. Labs and vitals reviewed. Home medication reviewed and reconciled. Physical Exam Const alert, oriented x3 and no apparent distress General Appearance: cooperative, comfortable and well kempt Exam Limitations: no limitations HEENT normocephalic, head/scalp atraumatic, hearing grossly normal bilaterally, moist oral mucous membranes and oropharynx normal Eyes PERRL, EOMs intact bilaterally and conjunctivae normal Neck no lymphadenopathy and supple Lymph Lymphatic: no lymphadenopathy noted and no lymphedema noted Resp normal respiratory effort and no use of accessory muscles Resp Narrative: mildly diminished breath sounds bibasally, no wheezes, few crackles. On room air. Auscultation: Negative for crackles, rales, rhonchi or wheezes Cardio regular rate, regular rhythm, S1 normal heart sound, S2 normal heart sound and no murmurs GI normal to inspection, nondistended, normoactive bowel sounds, soft to palpation and non-tender Extremity normal capillary refill and no clubbing, cyanosis or edema Extremity Narrative: extensive bilateral clubbing of upper extremities General Extremity: clubbing Skin General Skin Exam: no breakdown Neuro oriented x3, CN's II-XII intact bilaterally, no focal motor deficits, no sensory deficits noted and deep tendon reflexes 2+ bilaterally Sensorium / Orientation: awake, alert, oriented to person, oriented to place and oriented to time Motor Exam: strength 5/5 throughout Psych thought process normal, cooperative and affect normal Appearance: appropriate Weight / BMI Weight Weight: 136 lb 14.513 oz Body Mass Index (BMI) 24.2 ABG / Lab / Microbiology Data Result Diagrams: 09/02/22 05:24 09/02/22 05:24 Laboratory: Laboratory Results - last 24 hr 09/02/22 05:24: WBC 5.9, RBC 5.05, Hgb 16.3 H, Hct 50.9 H, MCV 100.8 H, MCH 32.3 H, MCHC 32.0, RDW Std Deviation 55.8 H, RDW Coeff of Fausto 15.2 H, Plt Count 307, MPV 9.9, Immature Gran % (Auto) 0.300, Neut % (Auto) 83.3 H, Lymph % (Auto) 14.7 L, Davison % (Auto) 1.5, Eos % (Auto) 0.0, Baso % (Auto) 0.2, Absolute Neuts (auto) 4.9, Absolute Lymphs (auto) 0.87, Nucleated RBC % 0 09/02/22 05:24: Sodium 137, Potassium 4.3, Chloride 103, Carbon Dioxide 29.0, Anion Gap 5, BUN 21 H, Creatinine 0.81, Estim Creat Clear Calc 53.46, Est GFR (MDRD) Af Amer 90, Est GFR (MDRD) Non-Af 75, BUN/Creatinine Ratio 26.0 H, Glucose 145 H, Calcium 8.7 Radiography Diagnostic Testing: Radiology Impression Echocardiogram 08/31/22 17:39 Interpretation Summary The estimated ejection fraction is 60 %. No evidence for diastolic dysfunction. The right atrium is mildly enlarged. Severely dilated right ventricle. Mildly decreased right ventricular systolic function Mild tricuspid valve insufficiency. Trivial pericardial effusion. Ordering Physician: Ekaterina Gao Performed By: Yessy Garay RDCS Chest CTA 09/01/22 11:46 IMPRESSION: No demonstrated pulmonary embolism or arterial dissection. COPD and pulmonary fibrosis detailed above. Right lower lobe mass versus dense infiltrate 2.71 cm. Mild cardiomegaly. Small pericardial effusion versus mild pericardial thickening. Moderate wedge deformities T9 and T11 with underlying degenerative changes. Electronically Signed: Gerardo Francis MD, MAYE at 13:54 EDT , D/C Instructions Discharge Diet: Low fat / Low cholesterol Discharge Activity: Return to Normal Activity Weight Bearing Status: Weight bearing as tolerated Call your doctor if you observe: Fever of 101 or Higher, Shortness of breath, Dizziness, Swelling in the ankles, Chest pain and Increased palpitations (irregular heartbeat) Meaningful Use Info Meaningful Use Diagnoses (Choose all that apply): CHF CHF CRAIG/ARB ordered at discharge?: Yes Documented LVEF (%): 60 Discharge Plan Admission Admit Date/Time: 08/31/22 17:14 Primary Reason for Your Visit: acute heart failure, COPD Attending Provider: Ivon Tuttle Primary Care Provider: Vickie Kimball Consulting Providers: Ekaterina Gao ; Star Ibrahim ; Josh Beach ; Mohit Duong ; Agustin Rushing ; Ro Castle TRACTOR TRAILER MECHANIC Instructions Patient Instructions: Discharge Instructions: COPD, Diagnosing COPD Discharge Orders/Prescriptions Prescriptions: New aspirin 81 mg Tablet,Delayed Release (Dr/Ec) 81 mg PO DAILY@0800 Qty: 30 1RF lisinopril 10 mg Tablet 10 mg PO DAILY Qty: 30 2RF furosemide [Lasix] 40 mg tablet 40 mg PO DAILY Qty: 30 2RF potassium chloride [Klor-Con M20] 20 mEq tablet,ER particles/crystals 20 meq PO DAILY Qty: 30 0RF prednisone 20 mg tablet 40 mg PO DAILY Qty: 10 0RF Continued multivitamin [Daily Multi-Vitamin] tablet 1 tab PO DAILY ibuprofen 200 mg capsule 400 mg PO Q6H Rx Instructions: Pt takes varying dose, based on pt's decision. potassium chloride [Klor-Con] 20 mEq packet 20 meq PO DAILY Label Comments: TAKE 1 PACKET BY MOUTH 1 TIME PER DAY FOR 30 DAYS Discontinued furosemide 20 mg tablet 20 mg PO DAILY Label Comments: TAKE 1 TABLET (ORAL) 1 TIME PER DAY NEEDED FOR 30 DAYS Referrals / Follow Up: iVckie Kimball DO [Primary Care Provider] - Within 2 Weeks Mohit Duong MD [Med Staff - Active Staff] - Within 1 Week (call to set up appointment for further workup of right lower lobe mass vs infiltrate) Gita Pradhan MD [Med Staff - Active Staff] - Within 1 Week (to call office for appointment, as you will need the mammogram ordered for left breast mass) Disposition Disposition (needs filled in before D/C Order can be placed): Home, Self Care Charges/Coding Visit Charges Inpatient E&M: 87923 Disch Hosp >30min
[2022-09-02 13:34] LABS: Erythrocyte Sedimentation Rate 29 mm/hr (0-30)
--- NOTE | 2022-09-02 14:04 | NURSING ---
patient discharged home. Discharge instructions reviewed with patient and she verbalizes understanding. Ambulates independent to vehicle per her request
[2022-09-02 17:00] LABS: Allen Test Positive; Base Excess 6 mmol/L (-2 to +2); Bicarbonate 29.9 mmol/L (22-26); Blood Gas Specimen Type ART; FI02 21; O2 Delivery Device Room Air; PO2 51 mmHG (75-100); SITE R Brach; SO2 86 % (95-99); Total Carbon Dioxide 31 mmol/L; pCO2 45.2 mmHg (35-45); pH 7.43 (7.35-7.45)
[2022-09-03 19:18] LABS: Rheumatoid Factor < 10.0 IU/mL (<15)
[2022-09-04 13:07] LABS: ANTINUCLEAR ANTIBODIES DIRECT Negative (Negative)
[2022-09-04 14:09] LABS: Cytoplasmic Ab (C-ANCA) <1:20 titer (Neg:<1:20); Perinuclear Ab (P-ANCA) <1:20 titer (Neg:<1:20)
[2022-09-05 05:07] LABS: HEPATITIS B SURFACE AG Negative (Negative); Hepatitis A IgM Antibody Negative (Negative); Hepatitis B Core AB IgM Negative (Negative)
[2022-09-06 19:07] LABS: CF, Screen Comment: (.)
[2022-09-07 21:07] LABS: Anti-Glomerular Basement Memb < 0.2 units (0.0-0.9); Immunoglobulin A 307 mg/dL (87-352); Immunoglobulin E 80 IU/mL (6-495); Immunoglobulin G 2214 mg/dL (586-1602); Immunoglobulin M 95 mg/dL (26-217)
[2022-09-10 16:09] LABS: Alternaria alternata <0.10 kU/L (Class 0); Bermuda Grass <0.10 kU/L (Class 0); Bluegrass, Kentucky <0.10 kU/L (Class 0); Cat Hair/Dander, Standard <0.10 kU/L (Class 0); D farinae Mite <0.10 kU/L (Class 0); D pteronyssinus <0.10 kU/L (Class 0); Dog Epithelia <0.10 kU/L (Class 0); Elm, American White <0.10 kU/L (Class 0); Mouse Urine <0.10 kU/L (Class 0); Oak, White <0.10 kU/L (Class 0); Plantain, English <0.10 kU/L (Class 0); Ragweed, Short/Common <0.10 kU/L (Class 0)
== END 2022-09-02 11:57 | disposition home or self-care (01) ==
LOC: ED 15:20 → PCU 16:43
PROVIDERS: Internal Medicine; Admitting Provider Internal Medicine; Emergency Provider Emergency Medicine; PCP Family Medicine; Visit Provider Student in an Organized Health Care Education/Training Program
DX: J84.10 Pulmonary fibrosis, unspecified (principal); I50.810 Right heart failure, unspecified; I27.81 Cor pulmonale (chronic); J96.01 Acute respiratory failure with hypoxia; Z79.82 Long term (current) use of aspirin; F17.210 Nicotine dependence, cigarettes, uncomplicated; M19.90 Unspecified osteoarthritis, unspecified site; Z79.899 Other long term (current) drug therapy; R03.0 Elevated blood-pressure reading, without diagnosis of hypertension; R91.8 Other nonspecific abnormal finding of lung field; D75.1 Secondary polycythemia
CPT/HCPCS: 36415; 36600; 71046; 71275; 80048; 80053; 80061; 81220; 82378; 82784; 82785; 82803; 83520; 83735; 83880; 84484; 85025; 85652; 86003; 86038; 86140; 86225; 86235; 86256; 86431; 86480; 86705; 86709; 87340; 93005; 93306; 96374; 96375; 96376; 97802; 99221; 99252; 99285; 99406; Q9967; A4216; G0378; G0463; J1940

== ENCOUNTER → 2022-11-23 | Outpatient (CLI) | payer OTHER, SELFPAY ==
--- NOTE | 2022-11-27 16:18 | PFTCOMP_ITS ---
COMPLETE PULMONARY FUNCTION TEST INTERPRETATION Brief HPI: Patient is a 72-year-old female, currently under the care of Ro Castle, who presents to [facility] for complete pulmonary function tests secondary to diagnosis of nicotine dependence. Respiratory therapist reports good effort and reproducible results. Patient did have significant difficulties with DLCO maneuver Interpretation: Forced expiration spirometry shows no large airways obstructive ventilatory defect with an FEV1 of 79% predicted. There is no significant bronchodilator response by strict ATS criteria. Spirograms are of good quality and plateau normally. The respiratory flow volume loop shows decreased expiratory flow rates at high lung volumes consistent with small airways obstruction. Lung volumes by body plethysmography show a normal total lung capacity at 5.15 L, 108% predicted. All other lung volumes are within normal limits. Diffusion capacity by carbon monoxide is severely reduced at 27% predicted. The airway resistance is normal. No previous pulmonary function tests were available for review. Impression: Some findings consistent with small airways obstruction. Patient does have an isolated reduction diffusion capacity, but this should be interpreted with c aution as patient did have difficulty with this maneuver. Clinical correlation is advised.
== END | disposition home or self-care (01) ==
PROVIDERS: PCP Family Medicine; Referring Provider Nurse Practitioner Acute Care; Visit Provider Nurse Practitioner Acute Care
DX: F17.200 Nicotine dependence, unspecified, uncomplicated (principal)
CPT/HCPCS: 94060; 94726; 94729

== ENCOUNTER → 2022-11-30 | Outpatient (CLI) | payer OTHER, SELFPAY ==
[2022-11-30 13:21] VITALS: PULSE 105; PULSE 106; PULSE 110; PULSE 112; PULSE 115; PULSE 116; PULSE 93; PULSE 96; O2SAT 84; O2SAT 86; O2SAT 88; O2SAT 90; O2SAT 93; O2SAT 95
--- NOTE | 2022-11-30 13:26 | CPS ---
Patient does not wear any oxygen at home. SpO2 read 71% on finger probe pulse ox, with a steady reading and comparable heart rate. Patient does have severe clubbing of digits. Placed ear probe pulse ox on and reading was 84-86% with a good waveform. Spoke to patient about hypoxia and use of oxygen. Patient is not thrilled about wearing oxygen but agreed to wear it for testing. Patient states that she is not short of breath. Placed patient on 2 lpm O2 before starting testing, SpO2 increased to 95-97%. Patient walked for 3 minutes without breaks, SpO2 86% on 2 lpm. Increased O2 to 3lpm, let patient recover for 2 minutes, SpO2 91%. Patient was able to walk the remaining 3 minutes without breaks, SpO2 88% at end of testing. Patient stated that she was not at all short of breath and that the walking pace was a lot slower than her normal pace. Her pace was slowed down by the maneuvering of the O2 tank as well as the ear probe pulse ox. Spoke to patient again about the need of having O2 at home.
--- NOTE | 2022-12-03 05:52 | WT_ITS ---
PSN 6 Minute Walk Test 6 Minute Walk Test 6 Minute Walk Test: 6 Minute Walk Test PSN:6-Minute Walk Test Start: 11/30/22 13:21 Freq: Status: Active Protocol: [id number] Document 11/30/22 13:21 DAVIDRITESH (Rec: 11/30/22 13:35 COSME [id number]) 6 Minute Walk Test Date Performed 11/30/22 Time Performed 12:40 Height 5 ft 4 in Weight: 58.967 kg Weight in Pounds 130.[address]: Ro Castle PROJECT SUPERINTENDENT Assistive device used: None Pre-test Oxygen Delivery Method Room Air Pulse Ox 84 Pulse Rate (60-100) 96 Dyspnea Theodore Scale (0-10) 0 Exertion Theodore Scale (6-20) 6 1st minute Oxygen Flow Rate (L/min) 2 Oxygen Delivery Method Nasal Cannula Pulse Ox 93 Pulse Rate (60-100) 106 H 2nd minute Oxygen Flow Rate (L/min) 2 Oxygen Delivery Method Nasal Cannula Pulse Ox 90 Pulse Rate (60-100) 110 H 3rd minute Oxygen Flow Rate (L/min) 2 Oxygen Delivery Method Nasal Cannula Pulse Ox 86 Pulse Rate (60-100) 116 H 4th minute Oxygen Flow Rate (L/min) 3 Oxygen Delivery Method Nasal Cannula Pulse Ox 90 Pulse Rate (60-100) 105 H 5th minute Oxygen Flow Rate (L/min) 3 Oxygen Delivery Method Nasal Cannula Pulse Ox 90 Pulse Rate (60-100) 112 H 6th minute Oxygen Flow Rate (L/min) 3 Oxygen Delivery Method Nasal Cannula Pulse Ox 88 Pulse Rate (60-100) 115 H Dyspnea Theodore Scale (0-10) 0 Exertion Theodore Scale (6-20) 12 Post-test Oxygen Flow Rate (L/min) 3 Oxygen Delivery Method Nasal Cannula Pulse Ox 95 Pulse Rate (60-100) 93 Full Laps Walked 12 Partial Lap, Number of Tiles Walked 10 Total Distance Walked (ft) 718 11/30/22 13:26 Cardiopulmonary Services by Riya Kovacs Patient does not wear any oxygen at home. SpO2 read 71% on finger probe pulse ox, with a steady reading and comparable heart rate. Patient does have severe clubbing of digits. Placed ear probe pulse ox on and reading was 84-86% with a good waveform. Spoke to patient about hypoxia and use of oxygen. Patient is not thrilled about wearing oxygen but agreed to wear it for testing. Patient states that she is not short of breath. Placed patient on 2 lpm O2 before starting testing, SpO2 increased to 95-97%. Patient walked for 3 minutes without breaks, SpO2 86% on 2 lpm. Increased O2 to 3lpm, let patient recover for 2 minutes, SpO2 91%. Patient was able to walk the remaining 3 minutes without breaks, SpO2 88% at end of testing. Patient stated that she was not at all short of breath and that the walking pace was a lot slower than her normal pace. Her pace was slowed down by the maneuvering of the O2 tank as well as the ear probe pulse ox. Spoke to patient again about the need of having O2 at home. Initialized on 11/30/22 13:26 - END OF NOTE Interpretation Interpretation: The patient was noted to be 84% on room air at rest. The patient was placed on 2 L with improvement to 97%. The patient did require 3 L nasal cannula to maintain saturations throughout testing. Patient did have an element of reflexive tachycardia with a peak heart of 116 bpm. In total, the patient traveled 718 feet over the course of 6 minutes with no assistive devices and 2 breaks. These findings are consistent with a respiratory limitation exercise tolerance. Recommendations Recommendations: The patient requires 2 L/min at rest, but should be using 3 L nasal cannula with any exertion.
== END | disposition home or self-care (01) ==
PROVIDERS: PCP Family Medicine; Referring Provider Nurse Practitioner Acute Care; Visit Provider Nurse Practitioner Acute Care
DX: J96.21 Acute and chronic respiratory failure with hypoxia (principal)
CPT/HCPCS: 94618

== ENCOUNTER 2024-01-29 08:48 | Inpatient (IN) | payer OTHER, MEDICARE, SELFPAY ==
[2024-01-29] VITALS (13 sets, daily range): BP systolic 117–154; BP diastolic 76–108; PULSE 71–100; RESP 16–18; TEMP 36.1–36.6; O2SAT 90–95; BMI 28.0; BMI 29.0
--- NOTE | 2024-01-29 08:59 | EKG12_ITS ---
Test Reason : SOB Blood Pressure : */* mmHG Vent. Rate : 94 BPM Atrial Rate : 94 BPM P-R Int : 144 ms QRS Dur : 86 ms QT Int : 314 ms P-R-T Axes : 69 144 140 degrees QTcB Int : 392 ms Sinus rhythm with Premature atrial complexes Possible Right ventricular hypertrophy Lateral infarct , age undetermined Abnormal ECG Confirmed by CARLOS ALBERTO GARCIA, KRISTA ([id number]), newspaper editor [employer] ([id number]) on 01/30/2024 1:47:00 P M Referred By: TL Confirmed By: KRISTA CARCAMO MD
--- NOTE | 2024-01-29 09:17 | RAD_ITS ---
STUDY: X-RAY CHEST REASON FOR EXAM: Female, 73 years old. Sob TECHNIQUE: AP and lateral views of the chest. COMPARISON: Comparison is made with prior study dated August 31, 2022. FINDINGS: EKG electrodes are seen. Vascular congestion and CHF superimposed on chronic interstitial fibrosis. Blunting of both costophrenic angles. There is moderate cardiac enlargement. Normal mediastinum and mansoor. Normal visualized pulmonary arteries. There is atherosclerotic calcification of the aortic arch with tortuosity. There are diffuse degenerative changes of the visualized thoracic spine. Normal visualized ribs, clavicles, and shoulders. There is no demonstrated abnormality of the visualized soft tissue structures of the upper abdomen. RAD/Chest PA and Lateral IMPRESSION: Thyromegaly and CHF. Superimposed on chronic interstitial fibrosis. Electronically Signed: Torsten Murdock MD at 9:42 EST ,
[2024-01-29 09:18] LABS: Absolute Lymphocyte Count 0.91 X10^3/uL (0.83-4.51); Absolute Neutrophil Count 5.6 X10^3/uL (2.0-7.7); Basophil# 0.04 X10^3/uL; Basophil% 0.6 % (0-1); Eosinophil# 0.01 X10^3/uL; Eosinophils% 0.1 % (0-5); Lymphocyte # 0.91 X10^3/ul (0.83-4.51); Lymphocyte % 12.7 % (19-41); Mean Corp Hgb Conc 34.2 g/dL (32-36); Mean Corpuscular Volume 111.1 fL (81-99); Mean Platelet Vol. 10.9 fl (6.2-12.0); Monocyte# 0.56 X10^3/uL; Monocyte% 7.8 % (0-10); NRBC Flagged by Analyzer 0.6 % (0-5); Neutrophil # 5.56 X10^3/uL (2.7-7.7); POSITIVE MORPHOLOGY YES; Platelet Count 179 K/mm3 (150-450); RBC Distribution Width CV 17.4 % (11.6-14.6); RBC Distribution Width SD 69.6 fl (35.1-43.9); Red Blood Count 4.95 M/mm3 (4.2-5.4); White Blood Count 7.1 K/mm3 (4.4-11.0)
[2024-01-29 09:23] LABS: Hemoglobin 18.8 g/dL (12.0-15.0)
[2024-01-29 09:26] LABS: Anion Gap 3 (5-15); BUN 37 mg/dL (7-18); Calcium,Total 8.8 mg/dL (8.5-10.1); Chloride 107 mmol/L (98-107); Creatinine, Serum 1.37 mg/dL (0.55-1.02); EST Glomerular Filtration Rate 40 mL/min (>60); Est Glom Filt Rate - Afr Amer 49 mL/min (>60); Estimated Creatinine Clearance 37.16 ml/min; Glucose 125 mg/dL (74-106); Potassium 4.7 mmol/L (3.5-5.1); Sodium Level 139 mmol/L (136-145)
[2024-01-29 09:50] LABS: Anisocytosis 2+
[2024-01-29 09:51] LABS: BNP,B-Type NATRIURETIC PEPTIDE 1659.6 pg/mL (0-100)
--- NOTE | 2024-01-29 09:54 | EDS_ITS ---
HPI History of Present Illness Chief Complaint: Shortness of Breath Informant: patient Narrative Narrative: Presents progressive leg swelling over 2 weeks. Worsening dyspnea. States yesterday did 7 steps up to work and got worse. No chest tightness or pain with this. Denies cough. Strong tobacco history. Denies orthopnea or PND. Previously on Lasix. Denies any history of diagnosed COPD or asthma. She was hospitalized a year ago for similar. Denies vomiting or diarrhea. After workup initiated, review of records hospitalized August the last year for similar findings. She left AMA. She had CT chest in the hospital noted density right lower lobe dense infiltrate versus mass. Pulmonary at that time likely felt it was dense infiltrate. However patient declined further workup. They were concerned of pulmonary fibrosis, cor pulmonale. She had similar complaints of cyanotic fingers fluid overload and decline oxygen at that time. 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 Per patient has not seen any physician since then. She was on Lasix at that time. 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 Clubbing of digits Cor pulmonale (chronic) Mass of lower lobe of right lung Pulmonary fibrosis determined by high resolution computed tomography New onset of congestive heart failure Congestive heart failure History of cyst of breast Headaches, cluster Arthritis Home Medications ?Medication ?Instructions ?Recorded ?Last Taken ?Type ibuprofen 200 mg capsule 600 mg PO Q8H PRN pain 07/17/18 01/29/24 History multivitamin (Daily Multi-Vitamin 1 tab PO DAILY 07/17/18 01/29/24 History tablet) ascorbate calcium (vitamin C) 500 500 mg PO DAILY 01/29/24 01/29/24 History mg tablet biotin 1 tab PO DAILY HAIR SKIN AND NAILS 01/29/24 01/29/24 History Allergy/AdvReac Type Severity Reaction Status Date / Time No Known Allergies Allergy Verified 01/29/24 08:56 Family History Other No pertinent family history Surgical History History of surgical procedure Social History household members: none current occupational status: employed current occupation: Works at the [employer] Smoking Status: Current every day smoker tobacco type: cigarettes Electronic Cigarette Use: not used alcohol intake: never substance use type: does not use what type of physical activity do you participate in: none do you feel safe at home: Yes ROS ROS ED Constitutional Constitutional ED: Denies chills, fever(s) or sweats Eyes Eyes: Denies change in vision ENT ENT ED: Denies dysphagia or sore throat Cardiovascular Cardiovascular: Reports leg edema; Denies chest pain, orthopnea, palpitations, paroxysmal nocturnal dyspnea or racing heartbeat Respiratory/Chest Respiratory/Chest: Reports dyspnea and dyspnea on exertion; Denies cough, orthopnea or paroxysmal nocturnal dyspnea Gastrointestinal Gastrointestinal: Denies abdominal pain, diarrhea, nausea or vomiting Genitourinary Genitourinary ED: Denies dysuria, hematuria or urinary frequency Musculoskeletal Musculoskeletal: Denies back pain, extremity pain or neck pain Integumentary Denies rash or wounds Neurologic Neurologic: Denies headache(s), paresthesias or weakness EXAM Physical Exam Const Vital Signs: 01/29/24 08:51 01/29/24 08:55 01/29/24 08:59 Temperature 97.2 F L 97.3 F L Temperature Source Oral Oral Pulse Rate 100 100 Respiratory Rate 16 16 Respiratory Effort Short of Breath Blood Pressure 119/80 119/80 Blood Pressure Mean 93 93 Pulse Ox 93 90 Oxygen Delivery Method Room Air Nasal Cannula Nasal Cannula Oxygen Flow Rate (L/min) 3 3 01/29/24 09:03 01/29/24 09:50 01/29/24 09:55 Temperature 97.6 F L Temperature Source Oral Pulse Rate 83 94 Respiratory Rate 18 18 Respiratory Effort Blood Pressure 140/106 H 140/106 H Blood Pressure Mean 117 117 Pulse Ox 92 93 94 Oxygen Delivery Method Nasal Cannula Nasal Cannula Nasal Cannula Oxygen Flow Rate (L/min) 3 3 01/29/24 10:00 01/29/24 10:00 Temperature 97.9 F Temperature Source Oral Pulse Rate 90 84 Respiratory Rate 18 18 Respiratory Effort Blood Pressure 148/101 H 148/101 H Blood Pressure Mean 116 116 Pulse Ox 94 94 Oxygen Delivery Method Nasal Cannula Nasal Cannula Oxygen Flow Rate (L/min) 3 Constitutional Narrative: 3 L nasal cannula no respiratory distress HEENT Reports moist mucous membranes normocephalic and atraumatic Eyes EOMs intact bilaterally and conjunctivae normal General Eye ED: Yes normal appearance of both eyes Neck no lymphadenopathy and supple General: Negative for tenderness Chest Wall 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 Chest: tenderness Resp Resp Narrative: Diminished breast at the bases. Effort and Inspection: symmetric chest movement; Negative for respiratory distress Cardio regular rate, regular rhythm and no murmurs Peripheral Pulses: pulses 2+ throughout GI normal to inspection, nondistended, normoactive bowel sounds and non-tender Palpation: Negative for guarding or rebound tenderness present Back/Spine no CVA tenderness and no thoracic nor lumbar tenderness Extremity normal to inspection Extremity Narrative: 2+ lower extremity edema, no calf tenderness. General Extremety ED: Yes edema; Negative for tenderness General Extremity: edema Neuro oriented x3 and no sensory deficits noted Sensorium / Orientation: awake and alert Skin Skin Narrative: No clubbing cyanosis of fingers bilaterally. MDM MDM MDM Narrative Medical decision making narrative: Interventions / MDM: Differential diagnosis: CHF exacerbation, fluid overload, hypoxia, left breast mass, tobacco dependence Diagnosis considered but do not suspect: Pulmonary embolism, findings hypoxia secondary to fluid overload. No angina symptoms. My EKG interpretation: Sinus rate of 94, no ST changes. T wave inversions anterior leads similar from previous EKG. Imaging independently reviewed and interpreted by myself: 2 view chest x-ray: Thyromegaly with CHF findings. Also read by radiology. 3 view right hip with pelvis: Arthritic changes noted of the hip. No fracture or any bony lesions. External documents reviewed: CTA chest: Reviewed from August 2022. Soft tissue left breast mass measuring 2.98 x 1.91 cm. Patient signed out AMA in August 2022. Test considered but not ordered:N/A ED course: Patient clubbing the finger cyanosis in the 80s with good waveforms. She stable on 3 L oxygen. No chest pains or angina symptoms. EKG is chronic findings. Chest x-ray ordered labs with BNP. BNP elevated at 1600 creatinine 1.37. White count 7.4 hemoglobin 18.8. She is given 40 of IV Lasix he is clinically stable. Discussed the breast exam and mass with the patient she states years ago had a cyst that was incised and drained. She is in agreement to stay in the hospital for further treatment. I spoke with hospitalist Dr. Mullins for admission to PCU. 1100: Per nursing patient brought up complaints of right hip pain. She was noted limping to the bathroom. She denies trauma. Given dose of pain medicines in the ED. Will obtain x-ray while in the ED for further evaluation. 1115: X-ray interpreted myself osteoarthritic changes. Re-evaluation: stable Disposition discussed with patient/family/significant other: Patient Case discussed with consulting clinician: Hospitalist This note was generated with [employer] dictation software. It may contain incorrect words, spelling, and punctuation that were not noted in checking the note before signing. Lab Data Attestation: I reviewed the patient's lab results. Labs: Laboratory Results - last 24 hr 01/29/24 09:04 WBC 7.1 RBC 4.95 Hgb 18.8 H* Hct 55.0 H MCV 111.1 H MCH 38.0 H MCHC 34.2 RDW Std Deviation 69.6 H RDW Coeff of Fausto 17.4 H Plt Count 179 MPV 10.9 Immature Gran % (Auto) 0.800 Neut % (Auto) 78.0 H Lymph % (Auto) 12.7 L [place] % (Auto) 7.8 Eos % (Auto) 0.1 Baso % (Auto) 0.6 Absolute Neuts (auto) 5.6 Absolute Lymphs (auto) 0.91 Nucleated RBC % 0.6 [address] Review May foll Anisocytosis 2+ Sodium 139 Potassium 4.7 Chloride 107 Carbon Dioxide 29.0 Anion Gap 3 L BUN 37 H Creatinine 1.37 H Estim Creat Clear Calc 37.16 Est GFR (MDRD) Af Amer 49 L Est GFR (MDRD) Non-Af 40 L BUN/Creatinine Ratio 27.0 H Glucose 125 H Calcium 8.8 B-Natriuretic Peptide 1659.6 H Radiography Diagnostic Testing: Clinical Impression(s) from Imaging Studies Chest X-Ray 01/29/24 09:17 IMPRESSION: Thyromegaly and CHF. Superimposed on chronic interstitial fibrosis. Electronically Signed: Torsten Murdock MD at 9:42 EST , Discharge Plan Dx/Rx/DC Orders Clinical Impression: Breast mass, Acute on chronic respiratory failure with hypoxemia, CHF (congestive heart failure), Hypoxia, Tobacco dependence Disposition Disposition: Acute Care Hospital [facility] Discharge Date/Time: 01/29/24 11:24
[2024-01-29] MEDS: Furosemide 40 MG/4 ML Vial IV (10:10)
--- NOTE | 2024-01-29 11:05 | RAD_ITS ---
STUDY: X-RAY - PELVIS AND RIGHT HIP REASON FOR EXAM: Female, 73 years old. Right hip pain. TECHNIQUE: 3 views of the pelvis and hip. COMPARISON: None. FINDINGS: There is a non-specific bowel gas pattern. A penile catheter is seen. Normal bilateral iliac wings, sacroiliac joints and visualized sacrum. Normal bilateral superior and inferior pubic rami. Normal pubic symphysis. Normal bilateral ischial tuberosities. Normal visualized femoral head. There is osteoarthritic spur formation of the acetabular rim. There is moderate articular joint space narrowing of the hip. RAD/HIP, UNI W/ Pelvis 2-3 Views IMPRESSION: Moderate degree of bilateral joint space narrowing slightly worse on the left side. Electronically Signed: Torsten Murdock MD at 11:41 EST ,
[2024-01-29] MEDS: Morphine 4 MG/ML Syringe IV (11:07)
[2024-01-29] MEDS: Furosemide 500 MG in Empty Viaflex 50 mL 1 EACH CONT INF (12:21)
[2024-01-29] MEDS: Potassium Chloride Oral Tablet 20 MEQ PO (18:21)
--- NOTE | 2024-01-29 18:29 | PCM.HP.STD ---
HPI - General General Date of Admission: 01/29/24 Date of Service: 01/29/24 Chief Complaint: Shortness of breath, lower extremity edema HPI Narrative KATALINA BIGGS, is a 73 F who presents to the emergency room at [facility] with complaints of worsening dyspnea and progressive leg swelling x 2 weeks. Patient has a history of small airways disease and pulmonary fibrosis, she does not use oxygen at home and she works full-time presently. Patient denies any fevers or chills, she denies any cough or productive sputum. Workup in the emergency room included a chest x-ray which showed thyromegaly and CHF superimposed on chronic interstitial fibrosis, patient required 3 L of oxygen via nasal cannula to maintain her pulse ox above 90%, patient's white blood cell count was normal, hemoglobin was 18.8, creatinine was 1.37 and BUN was 37. Patient's beta natruretic peptide was elevated at 1659. Patient was admitted to PCU for acute on chronic diastolic congestive heart failure with hypoxia, she will be placed on a Lasix drip and labs will be monitored. 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 Clubbing of digits Cor pulmonale (chronic) Mass of lower lobe of right lung Pulmonary fibrosis determined by high resolution computed tomography New onset of congestive heart failure Congestive heart failure History of cyst of breast Headaches, cluster Arthritis Home Medications ?Medication ?Instructions ?Recorded ?Last Taken ?Type ibuprofen 200 mg capsule 600 mg PO Q8H PRN pain 07/17/18 01/29/24 History multivitamin (Daily Multi-Vitamin 1 tab PO DAILY 07/17/18 01/29/24 History tablet) ascorbate calcium (vitamin C) 500 500 mg PO DAILY 01/29/24 01/29/24 History mg tablet biotin 1 tab PO DAILY HAIR SKIN AND NAILS 01/29/24 01/29/24 History Allergy/AdvReac Type Severity Reaction Status Date / Time No Known Allergies Allergy Verified 01/29/24 08:56 Family History Other No pertinent family history Surgical History History of surgical procedure Social History household members: none current occupational status: employed current occupation: Works at the [employer] Smoking Status: Current every day smoker tobacco type: cigarettes Electronic Cigarette Use: not used alcohol intake: never substance use type: does not use what type of physical activity do you participate in: none do you feel safe at home: Yes ROS Constitutional Constitutional: Reports fatigue; Denies anorexia, change in weight, chills, fever(s), night sweats or weakness Eyes Eyes: Denies blurry vision, change in vision, discharge from eye(s) or eye pain Cardiovascular Cardiovascular: Reports dyspnea on exertion; Denies chest pain, claudication, edema or palpitations Respiratory/Chest Respiratory/Chest: Reports dyspnea, shortness of breath at rest and shortness of breath with exertion; Denies cough or hemoptysis Gastrointestinal Gastrointestinal: Denies abdominal pain, constipation, diarrhea, hematemesis, hematochezia, melena, nausea or vomiting Genitourinary Genitourinary: Denies dysuria, hematuria, urinary frequency, urinary hesitancy, urinary incontinence or urinary urgency Musculoskeletal Musculoskeletal: Denies back pain, joint pain, joint stiffness, joint swelling, myalgias or neck pain Neurologic Neurologic: Denies abnormal gait, abnormal speech, dizziness, focal weakness, headache(s), loss of vision, numbness, other visual disturbances, paresthesias, syncope or tingling Psychiatric Psychiatric: Denies anxiety, cognitive impairment, depression, irritability, mood swings or suicidal ideation Endocrine Endocrinology: Denies change in body appearance, cold intolerance, excessive sweating, heat intolerance, polydipsia or polyuria Hematologic/Lymphatic Hematologic/Lymphatic: Denies none, anemia, easy bleeding, easy bruising or lymphadenopathy Allergic/Immunologic Allergic/Immunologic: Denies rhinitis, urticaria, eczemia or asthma Vital Signs Vital Signs Vital Signs: 01/29/24 08:51 01/29/24 08:55 01/29/24 08:59 Temperature 97.2 F L 97.3 F L Temperature Source Oral Oral Pulse Rate 100 100 Respiratory Rate 16 16 Respiratory Effort Short of Breath Respiratory Depth Respiratory Pattern Blood Pressure 119/80 119/80 Blood Pressure Mean 93 93 Blood Pressure Source Blood Pressure Position Blood Pressure Location Pulse Ox 93 90 Oxygen Delivery Method Room Air Nasal Cannula Nasal Cannula Oxygen Flow Rate (L/min) 3 3 01/29/24 09:03 01/29/24 09:50 01/29/24 09:55 Temperature 97.6 F L Temperature Source Oral Pulse Rate 83 94 Respiratory Rate 18 18 Respiratory Effort Respiratory Depth Respiratory Pattern Blood Pressure 140/106 H 140/106 H Blood Pressure Mean 117 117 Blood Pressure Source Blood Pressure Position Blood Pressure Location Pulse Ox 92 93 94 Oxygen Delivery Method Nasal Cannula Nasal Cannula Nasal Cannula Oxygen Flow Rate (L/min) 3 3 01/29/24 10:00 01/29/24 10:00 01/29/24 11:00 Temperature 97.9 F 97.9 F Temperature Source Oral Oral Pulse Rate 90 84 90 Respiratory Rate 18 18 18 Respiratory Effort Respiratory Depth Respiratory Pattern Blood Pressure 148/101 H 148/101 H 148/101 H Blood Pressure Mean 116 116 116 Blood Pressure Source Blood Pressure Position Blood Pressure Location Pulse Ox 94 94 94 Oxygen Delivery Method Nasal Cannula Nasal Cannula Nasal Cannula Oxygen Flow Rate (L/min) 3 3 01/29/24 11:00 01/29/24 11:23 01/29/24 11:55 Temperature 97.9 F 97.5 F L Temperature Source Oral Pulse Rate 82 90 88 Respiratory Rate 18 16 16 Respiratory Effort Respiratory Depth Respiratory Pattern Blood Pressure 140/88 H 117/76 154/108 H Blood Pressure Mean 105 89 123 Blood Pressure Source Monitor Blood Pressure Position Semi-Fowlers Blood Pressure Location Right Arm Pulse Ox 94 93 95 Oxygen Delivery Method Nasal Cannula Nasal Cannula Oxygen Flow Rate (L/min) 3 01/29/24 13:00 01/29/24 18:00 Temperature 97.9 F Temperature Source Oral Pulse Rate 91 Respiratory Rate 18 Respiratory Effort Normal Non-Labored Respiratory Depth Normal Respiratory Pattern Normal Blood Pressure 124/84 H Blood Pressure Mean 97 Blood Pressure Source Monitor Blood Pressure Position Semi-Fowlers Blood Pressure Location Right Arm Pulse Ox 94 Oxygen Delivery Method Nasal Cannula Nasal Cannula Oxygen Flow Rate (L/min) 3 5 Weight Weight: 74.3 kg Body Mass Index (BMI) 29.0 Physical Exam Const alert, oriented x3 and no apparent distress General Appearance: cooperative, well kempt and well developed Orientation / Consciousness: awake, oriented to person, oriented to place and oriented to time HEENT normocephalic, head/scalp atraumatic, hearing grossly normal bilaterally and moist oral mucous membranes Eyes PERRL, EOMs intact bilaterally and conjunctivae normal Neck supple, no JVD, thyroid normal and no carotid bruits General: trachea midline Resp normal respiratory effort, no retractions and no use of accessory muscles Resp Narrative: Inspiratory rales were noted at the bases bilaterally Auscultation: rales bilateral; Negative for rhonchi or wheezes Cardio regular rate, regular rhythm, S1 normal heart sound, S2 normal heart sound, no murmurs, no rub and no gallops GI normal to inspection, nondistended, normoactive bowel sounds, soft to palpation, non-tender and non-distended Extremity no clubbing, cyanosis or edema Skin no rashes or lesions noted General Skin Exam: no breakdown Neuro oriented x3, CN's II-XII intact bilaterally, moves all extremities, no focal motor deficits and no sensory deficits noted Sensorium / Orientation: awake and alert Speech: speech normal Psych affect normal Results Lab / Micro Data 01/29/24 09:04 01/29/24 09:04 Labs: Laboratory Results - last 24 hr 01/29/24 09:04: WBC 7.1, RBC 4.95, Hgb 18.8 H*, Hct 55.0 H, MCV 111.1 H, MCH 38.0 H, MCHC 34.2, RDW Std Deviation 69.6 H, RDW Coeff of Fausto 17.4 H, Plt Count 179, MPV 10.9, Immature Gran % (Auto) 0.800, Neut % (Auto) 78.0 H, Lymph % (Auto) 12.7 L, [place] % (Auto) 7.8, Eos % (Auto) 0.1, Baso % (Auto) 0.6, Absolute Neuts (auto) 5.6, Absolute Lymphs (auto) 0.91, Nucleated RBC % 0.6, Diff Path Review May foll, Anisocytosis 2+, Sodium 139, Potassium 4.7, Chloride 107, Carbon Dioxide 29.0, Anion Gap 3 L, BUN 37 H, Creatinine 1.37 H, Estim Creat Clear Calc 37.16, Est GFR (MDRD) Af Amer 49 L, Est GFR (MDRD) Non-Af 40 L, BUN/Creatinine Ratio 27.0 H, Glucose 125 H, Calcium 8.8, B-Natriuretic Peptide 1659.6 H Micro: Microbiology 01/29/24 09:10 Mucosa - Nose Coronavirus COVID-19 PCR - Final Imaging Radiology Impression Chest X-Ray 01/29/24 09:17 IMPRESSION: Thyromegaly and CHF. Superimposed on chronic interstitial fibrosis. Electronically Signed: Torsten Murdock MD at 9:42 EST , Hip/Pelvis X-Ray 01/29/24 11:05 IMPRESSION: Moderate degree of bilateral joint space narrowing slightly worse on the left side. Electronically Signed: Torsten Murdock MD at 11:41 EST , Assessment & Plan Assessment/Plan (1) CHF (congestive heart failure): PLAN: Plan 1. Acute on chronic diastolic congestive heart failure-patient's last echocardiogram showed a normal EF, I will repeat a limited echocardiogram tomorrow to assess LV function. Patient will be placed on Lasix drip, labs will be monitored, patient will be monitored on telemetry. 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
[2024-01-29] MEDS: Heparin Injection (Vial) 5,000 UNIT/ML VIAL 5000 UNIT SC (20:25)
[2024-01-30] VITALS (10 sets, daily range): BP systolic 100–141; BP diastolic 67–80; PULSE 88–114; RESP 16–20; TEMP 36.1–36.8; O2SAT 90–96; BMI 25.6
[2024-01-30 07:53] LABS: Anion Gap 7 (5-15); BUN 27 mg/dL (7-18); BUN/Creat Ratio 28.7 RATIO (10-20); Calcium,Total 8.8 mg/dL (8.5-10.1); Chloride 96 mmol/L (98-107); Creatinine, Serum 0.94 mg/dL (0.55-1.02); EST Glomerular Filtration Rate 62 mL/min (>60); Est Glom Filt Rate - Afr Amer 75 mL/min (>60); Glucose 87 mg/dL (74-106); Potassium 3.2 mmol/L (3.5-5.1); Sodium Level 142 mmol/L (136-145)
[2024-01-30] MEDS: Ipratropium/Albuterol Sulfate 3 ML AMPUL.NEB INHALATION ×2 (07:56→20:26)
--- NOTE | 2024-01-30 08:17 | ECHOL_ITS ---
Reason For Study: CHF Procedure This was a limited 2D transthoracic echocardiogram. Exam performed portable in patient room. Left Ventricle Normal LV size. The estimated ejection fraction is 65 %. Unable to assess diastolic dysfunction. D- shaped septum due to pulmonary hypertension. Right Ventricle Severely dilated right ventricle. Moderate global right ventricular systolic dysfunction. Atria Normal left atrium. The right atrium is severely enlarged. No doppler evidence for ASD. Mitral Valve There is no mitral valve stenosis. Not assessed. Tricuspid Valve There is no tricuspid stenosis. Mild (1+) tricuspid valve insufficiency. Pulmonary artery systolic pressure is 70 mmHg. Aortic Valve Trisinus/trileaflet aortic valve. There is no aortic stenosis. Not assessed. Pericardium/Pleural Trivial pericardial effusion. MMode/2D Measurements & Calculations LVIDd: 3.6 cm IVSd: 0.80 cm LAV(MOD-bp): 26.4 ml LVIDs: 2.3 cm LVPWd: 1.0 cm LAV(MOD-sp2): 32.4 ml RVDd: 4.2 cm FS: 35.2 % LAV(MOD-sp4): 17.6 ml SV(MOD-sp4): 18.7 ml SV(sp4-el): 19.9 ml LVAd ap4: 15.6 cm2 LVLd ap4: 6.5 cm EDV(MOD-sp4): 31.0 ml EDV(sp4-el): 32.2 ml LVAs ap4: 8.6 cm2 LVLs ap4: 5.1 cm ESV(MOD-sp4): 12.3 ml ESV(sp4-el): 12.3 ml EF(MOD-sp4): 60.2 % EF(sp4-el): 61.9 % LA dimension(2D): 3.6 cm LA A4 area: 9.8 cm2 RA A4 area: 24.7 cm2 Doppler Measurements & Calculations TR max dennis: 374.1 cm/sec TR max P.0 mmHg ECHO/Echo, Limited Study Interpretation Summary The estimated ejection fraction is 65 %. Unable to assess diastolic dysfunction. Severely dilated right ventricle. Moderate global right ventricular systolic dysfunction. The right atrium is severely enlarged. Trivial pericardial effusion. Ordering Physician: Gerardo Mullins Referring Physician: PAIGE BOYD Performed By: Regine Sanchez and Student
[2024-01-30] MEDS: Heparin Injection (Vial) 5,000 UNIT/ML VIAL 5000 UNIT SC ×2 (09:11→20:15)
[2024-01-30] MEDS: Potassium Chloride Oral Tablet 20 MEQ 40 MEQ PO (09:12)
[2024-01-30] MEDS: Aspirin E.C. 81 MG Tablet PO (09:12)
[2024-01-30] MEDS: Potassium Chloride Oral Tablet 20 MEQ PO ×2 (09:12→16:40)
--- NOTE | 2024-01-30 10:00 | PCM.PN.HOSP ---
Reason for Visit Reason for Visit: Diagnoses Heart failure, unspecified (01/29/24) Subjective Subjective Patient was seen and examined today, she appears in no distress. Patient is on 3 L of nasal cannula oxygen and present time. I have ordered a limited echo cardiogram today to check her LV function. Patient appears to have diuresed well, potassium slightly low today and have given her extra potassium. Objective Data Objective Data Vital Signs: Vital Signs Temp Pulse Resp BP Pulse Ox O2 Del Method O2 Flow Rate 97.8 F 93 16 106/70 94 Nasal Cannula 3 01/30/24 09:20 01/30/24 09:20 01/30/24 09:20 01/30/24 09:20 01/30/24 09:20 01/30/24 09:20 01/30/24 09:20 Oxygen Flow Rate (L/min) 3 Oxygen Delivery Method Nasal Cannula Weight: 74.3 kg Body Mass Index (BMI) 29.0 Intake & Output: Intake and Output for Last 24 Hours 01/28/24 01/29/24 01/30/24 23:59 23:59 23:59 Intake Total 860 / 860 Output Total 3700 / 6500 5840 / 5840 Balance -2840 / -5640 -5840 / -5840 Lab / Micro Data 01/29/24 09:04 01/30/24 06:46 Labs: Laboratory Results - last 24 hr 01/30/24 06:46: Sodium 142, Potassium 3.2 L, Chloride 96 L, Carbon Dioxide 38.0 H, Anion Gap 7, BUN 27 H, Creatinine 0.94, Estim Creat Clear Calc 53.00, Est GFR (MDRD) Af Amer 75, Est GFR (MDRD) Non-Af 62, BUN/Creatinine Ratio 28.7 H, Glucose 87, Calcium 8.8 Micro: Microbiology 01/29/24 09:10 Mucosa - Nose Coronavirus COVID-19 PCR - Final Radiography Diagnostic Testing: Radiology Impression Hip/Pelvis X-Ray 01/29/24 11:05 IMPRESSION: Moderate degree of bilateral joint space narrowing slightly worse on the left side. Electronically Signed: Torsten Murdock MD at 11:41 EST , Physical Exam Narrative alert, oriented x3 and no apparent distress General Appearance: cooperative, well kempt and well developed Orientation / Consciousness: awake, oriented to person, oriented to place and oriented to time HEENT normocephalic, head/scalp atraumatic, hearing grossly normal bilaterally and moist oral mucous membranes Eyes PERRL, EOMs intact bilaterally and conjunctivae normal Neck supple, no JVD, thyroid normal and no carotid bruits General: trachea midline Resp normal respiratory effort, no retractions and no use of accessory muscles Resp Narrative: Inspiratory rales were noted at the bases bilaterally Auscultation: rales bilateral; Negative for rhonchi or wheezes Cardio regular rate, regular rhythm, S1 normal heart sound, S2 normal heart sound, no murmurs, no rub and no gallops GI normal to inspection, nondistended, normoactive bowel sounds, soft to palpation, non-tender and non-distended Extremity no clubbing, cyanosis or edema Skin no rashes or lesions noted General Skin Exam: no breakdown Neuro oriented x3, CN's II-XII intact bilaterally, moves all extremities, no focal motor deficits and no sensory deficits noted Sensorium / Orientation: awake and alert Speech: speech normal Psych affect normal Assessment & Plan Assessment/Plan (1) CHF (congestive heart failure): PLAN: Plan 1. Acute on chronic diastolic congestive heart failure-patient's last echocardiogram showed a normal EF, I will repeat a limited echocardiogram, continue Lasix IV infusion #2 chronic pulmonary fibrosis-complicates care, management, recovery, and prognosis #3 chronic obstructive pulmonary disease with small airways obstruction-patient will continue DuoNeb aerosols #4 hypoxia-patient's pulse ox will be monitored, oxygen will be adjusted as needed Total clinical time spent by myself addressing the patient's medical issues, reviewing all of her data, and collaborating with patient's care team: 35 minutes Charges/Coding Visit Charges Inpatient E&M: 18556 Subs Hosp L2
--- NOTE | 2024-01-30 10:50 | CASEMGMT ---
JARAD TAM WAGON WINDER CM to room to meet with patient for initial transition planning/care coordination assessment. JARAD TAM introduced self and role at [facility]. Pt voices understanding and consents to assessment at this time. Pt resting in bed in no distress at this time. Pt is A/O at this time and answers all questions appropriately. Care providers, pharmacy, and demographics verified/updated at this time. PCP: Dr Loyola Specialists: none. Inquired if pt sees a certified novell administrator. Pt states she does not and states, I feel there is no problem. Preferred Pharmacy: [facility] Insurance: LUTHER Godwin Prescription Benefit: Yes Living Will/HPOA: Pt does not currently have LW/HCPOA. Made aware SW can help w/completion of HCPOA. She states she will think about it and let someone know if she decides she would like to complete while @ [facility]. She states she would list her adult children as POA's, if she does decide to complete them. Made aware this can be done w/SW as an out-patient as well. LNOK: No contacts listed and pt does not want anyone listed and does not want to list any emergency contact either. She states she has 3 adult children. Twin boys and a daughter. She states [id number] and she stays in-contact with them. They know she has not been feeling well but they do not know she is in the hospital. She declines wanting them listed on her chart, even for emergency-only purpose. Living Arrangements: Lives alone in one-story home w/no steps to enter. Independent. 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 Transportation: Pt states drives self and states no transportation concerns at this time. She staes her car is currently @ [facility] and she plans to drive home. DME: Pt has a pulse ox. Denies using any other DME. No home O2. Discussed home O2 set-up process. Pt states, I don't want anything to do with oxygen. HHC/SNF: No hx of either. She declines HHC and CCN. She has hx of doing [facility] in 2022 and states, It went well but declines wanting this again. RNLissett, made aware of need of CHF education. Pt wishes to return home and states has no concerns with going home at time of discharge. Follow for home oxygen needs and any further discharge planning/needs. Pt voices no further concerns/needs at this time. Advised pt to ask for CM if any further questions/concerns/needs arise. Voices understanding. PLAN: Home. Follow for possible Home O2 Sandy STILLN RN CM
[2024-01-30 12:00] LABS: Pathologist Review Reviewed
[2024-01-30] MEDS: Furosemide 500 MG in Empty Viaflex 50 mL 1 EACH CONT INF (21:19)
[2024-01-31] VITALS (8 sets, daily range): BP systolic 110–125; BP diastolic 67–91; PULSE 86–98; RESP 17–24; TEMP 36.3–36.8; O2SAT 93–97; BMI 24.7
--- NOTE | 2024-01-31 03:07 | PCM.HOSP.N ---
Hospitalist Note Patient found without her oxygen on, had dropped down to 62%, it was replaced and she recovered slowly. Will place continuous oxygen pulse oximeter to assure she wears her oxygen.
[2024-01-31] MEDS: Ipratropium/Albuterol Sulfate 3 ML AMPUL.NEB INHALATION ×3 (07:27→20:15)
[2024-01-31 07:34] LABS: BUN 28 mg/dL (7-18); Calcium,Total 8.3 mg/dL (8.5-10.1); Carbon Dioxide > 45.0 mmol/L (21.0-32.0); Chloride 88 mmol/L (98-107); EST Glomerular Filtration Rate 65 mL/min (>60); Est Glom Filt Rate - Afr Amer 79 mL/min (>60); Estimated Creatinine Clearance 51.37 ml/min; Glucose 103 mg/dL (74-106); Potassium 3.5 mmol/L (3.5-5.1); Sodium Level 138 mmol/L (136-145)
[2024-01-31] MEDS: Potassium Chloride Oral Tablet 20 MEQ PO (08:31)
[2024-01-31] MEDS: Heparin Injection (Vial) 5,000 UNIT/ML VIAL 5000 UNIT SC ×2 (08:31→20:43)
[2024-01-31] MEDS: Aspirin E.C. 81 MG Tablet PO (08:31)
[2024-01-31 09:13] LABS: Allen Test Positive; Base Excess 18 mmol/L (-2 to +2); Bicarbonate 40.8 mmol/L (22-26); Blood Gas Specimen Type ART; Mode Not entered; O2 Delivery Device Cannula; PO2 59 mmHG (75-100); SITE L Radial; SO2 92 % (95-99); Total Carbon Dioxide 42 mmol/L; pCO2 51.8 mmHg (35-45)
--- NOTE | 2024-01-31 11:01 | CON.PCM.CC_ITS ---
Assessment & Plan Assessment/Plan (1) Hypoxia: PLAN: Plan RECOMMENDATIONS: 1. Agree with stopping diuretics. 2. Continue bronchodilators. 3. Supplemental oxygen to maintain saturations at or above 90%. 4. Recommend outpatient pulmonary follow-up along with repeat PFTs and CT imaging of the chest. 5. Compliance with supplemental oxygen is of paramount importance. 6. Smoking cessation is advisable. 7. Will sign off from a pulmonary perspective. Please call with any additional questions. IMPRESSIONS: 1. Chronic hypoxemic respiratory failure The patient has an extensive tobacco abuse history with radiographic evidence of emphysema and unspecified interstitial lung disease along with chronic hypoxemic respiratory failure, for which she has been noncompliant with the use of supplemental O2. In addition, the patient has evidence of severe pulmonary hypertension and RV dysfunction on surface echocardiogram. This is likely the main contributing etiology for her presenting symptoms. Ultimately, the patient decided not to follow-up in the pulmonary medicine office as scheduled. I explained to her that her hypoxemia and RV dysfunction will likely worsen with time, given her noncompliance with prescribed medical therapy. At this time, I agree with discontinuing diuretics, as the patient has developed a significant contraction alkalosis. She has been maintained on scheduled bronchodilators and appears to be at her baseline from a supplemental oxygen need. If the patient chooses to follow-up in the pulmonary medicine clinic after discharge, she would benefit from follow-up CT chest to evaluate for interval worsening in her interstitial lung disease along with repeat PFTs. Compliance with prescribed supplemental O2 is of paramount importance. 2. Pulmonary hypertension/chronic tobacco dependency/RV dysfunction/polycythemia Complicates care, management, recovery and prognosis. Smoking cessation is strongly advised. I do suspect that the patient's polycythemia is likely secondary to chronic hypoxemia. Although she does not seem overtly interested in following up in the pulmonary medicine office, an appointment can be made at the time of her discharge should she change her mind. This note was generated with [employer] dictation software. It may contain incorrect words, spelling, and punctuation that were not noted in checking the note before signing. HPI Consult Data Date of Consult: 01/31/24 HPI Narrative Reason for Consultation: COPD and chronic hypoxemic respiratory failure HPI Narrative: The patient is a 73-year-old female, with a history as outlined below, who presented to the emergency department on January 28 with lower extremity edema and progressive shortness of breath. The patient was seen in the pulmonary medicine clinic in September 2022. Although she does not meet a formal diagnosis of COPD, based upon PFTs, she had a significantly decreased diffusing capacity, concerning for underlying pulmonary hypertension. 6-minute walk test completed at that time demonstrated the need for 2 L/min of supplemental oxygen at rest and 3 L/min with exertion. Prior chest imaging also demonstrated evidence of pulmonary fibrosis. Surface echocardiogram completed on January 29 demonstrated moderate global RV systolic dysfunction with a pulmonary artery systolic pressure of 70 mmHg. Ejection fraction was normal. On presentation to the emergency department, the patient was documented to be afebrile and hemodynamically stable. Laboratory evaluation revealed a normal white blood cell count with a hemoglobin of 18.8 g/dL. Chemistry profile was notable for a creatinine of 1.37. BNP was elevated at 1659. Chest x-ray demonstrated chronic interstitial septal thickening with superimposed pulmonary vascular congestion and likely small bilateral pleural effusions. The patient was initially admitted to the hospital and placed on a continuous Lasix infusion and bronchodilators. COVID PCR was negative. Over the last 48 hours, the patient serum bicarbonate has increased to greater than 45. She remains on supplemental oxygen at 4 L/min. The patient readily admitted to me that she has been noncompliant with the use of her supplemental oxygen. 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 In addition, she does continue to smoke cigarettes daily. The patient did confirm that she failed to follow-up as scheduled in the pulmonary medicine office, and does not seem overly interested in following up after this hospitalization. 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 Pulmonary fibrosis determined by high resolution computed tomography New onset of congestive heart failure Congestive heart failure History of cyst of breast Headaches, cluster Arthritis Home Medications ?Medication ?Instructions ?Recorded ?Last Taken ?Type ibuprofen 200 mg capsule 600 mg PO Q8H PRN pain 07/17/18 01/29/24 History multivitamin (Daily Multi-Vitamin 1 tab PO DAILY 07/17/18 01/29/24 History tablet) ascorbate calcium (vitamin C) 500 500 mg PO DAILY 01/29/24 01/29/24 History mg tablet biotin 1 tab PO DAILY HAIR SKIN AND NAILS 01/29/24 01/29/24 History Allergy/AdvReac Type Severity Reaction Status Date / Time No Known Allergies Allergy Verified 01/29/24 08:56 Family History Other No pertinent family history Surgical History History of surgical procedure Social History household members: none current occupational status: employed current occupation: Works at the [employer] Smoking Status: Current every day smoker tobacco type: cigarettes Electronic Cigarette Use: not used alcohol intake: never substance use type: does not use what type of physical activity do you participate in: none do you feel safe at home: Yes ROS ROS Narrative 10 systems were reviewed with pertinent positives as noted in the HPI above. Physical Exam Const alert and no apparent distress General Appearance: cooperative HEENT normocephalic, head/scalp atraumatic and moist oral mucous membranes Eyes PERRL, EOMs intact bilaterally and conjunctivae normal Neck supple General: trachea midline Chest inspection of chest normal Resp normal respiratory effort Auscultation: rales and diminished lung sounds Cardio regular rate and regular rhythm GI normal to inspection, nondistended, normoactive bowel sounds Extremity General Extremity: clubbing and edema Skin no rashes or lesions noted Neuro CN's II-XII intact bilaterally, moves all extremities and no focal motor deficits Psych cooperative and affect normal Lab / Micro Data 01/29/24 09:04 01/31/24 06:40 Labs: Laboratory Results - last 24 hr 01/29/24 09:04: Diff Path Review Reviewed 01/31/24 06:40: Sodium 138, Potassium 3.5, Chloride 88 L, Carbon Dioxide > 45.0 H*, Anion Gap TNP, BUN 28 H, Creatinine 0.90, Estim Creat Clear Calc 51.37, Est GFR (MDRD) Af Amer 79, Est GFR (MDRD) Non-Af 65, BUN/Creatinine Ratio 31.0 H, Glucose 103, Calcium 8.3 L ABG Data ABG results: ABG 01/31/24 09:10 Specimen Type ART Sample Site L Radial pH 7.50 H Bicarbonate Actual 40.8 H Total CO2 42 Base Excess 18 H O2 Saturation 92 L O2 % 4.0 ABG pCO2 51.8 H ABG pO2 59 L Brian Test Positive O2 Delivery Device Cannula Vent Mode Not entered Imaging Radiology Impression Echocardiogram 01/30/24 08:17 Interpretation Summary The estimated ejection fraction is 65 %. Unable to assess diastolic dysfunction. Severely dilated right ventricle. Moderate global right ventricular systolic dysfunction. The right atrium is severely enlarged. Trivial pericardial effusion. Ordering Physician: Gerardo Mullins Referring Physician: PAIGE BOYD Performed By: Regine Sanchez and Student Charges/Coding Visit Charges Inpatient E&M: 59512 Init Hosp L3
[2024-01-31] MEDS: 0.9% Saline Lock 10 ML Syringe IV (11:02)
--- NOTE | 2024-01-31 15:00 | CASEMGMT ---
JARAD TAM in to discuss needs at discharge. RN ANEL explained that patient may need to go home with oxygen at discharge. Patient states she will consider it. JARAD TAM reviewed DME agencies with patient and prefers [employer]. Patient denies further needs or help at discharge. Patient had no further questions or concerns. Green sheet placed on chart.
--- NOTE | 2024-01-31 15:31 | PCM.PN.HOSP ---
Reason for Visit Reason for Visit: Diagnoses Heart failure, unspecified (01/29/24) Hypoxemia (01/29/24) Subjective Subjective Patient was seen and examined today, he obtained an arterial blood gas on room air today, her PaO2 was in the 50s and her pCO2 was in the 50s, patient was alkalotic on her pH. I believe this indicates the patient has some contraction alkalosis from diuresis. I stopped the patient's IV diuresis, I had pulmonary medicine see the patient and they did not have anything to offer except for home oxygen, they said the patient flatly refused home oxygen in the past and pulmonary medicine did not feel that IV corticosteroids were going to provide any benefit presently. They recommended stopping IV Lasix also. Objective Data Objective Data Vital Signs: Vital Signs Temp Pulse Resp BP Pulse Ox O2 Del Method O2 Flow Rate 97.6 F L 89 24 H 119/91 H 93 Nasal Cannula 4 01/31/24 08:22 01/31/24 13:03 01/31/24 13:03 01/31/24 08:22 01/31/24 08:22 01/31/24 08:34 01/31/24 08:34 Oxygen Flow Rate (L/min) 4 Oxygen Delivery Method Nasal Cannula Weight: 63.3 kg Body Mass Index (BMI) 24.7 Intake & Output: Intake and Output for Last 24 Hours 01/29/24 01/30/24 01/31/24 23:59 23:59 23:59 Intake Total 860 / 860 1512.97 / 1512.97 13.73 / 13.73 Output Total 3700 / 6500 8840 / 9640 2600 / 2600 Balance -2840 / -5640 -7327.03 / -8127.03 -2586.27 / -2586.27 Lab / Micro Data 01/29/24 09:04 01/31/24 06:40 Labs: Laboratory Results - last 24 hr 01/31/24 06:40: Sodium 138, Potassium 3.5, Chloride 88 L, Carbon Dioxide > 45.0 H*, Anion Gap TNP, BUN 28 H, Creatinine 0.90, Estim Creat Clear Calc 51.37, Est GFR (MDRD) Af Amer 79, Est GFR (MDRD) Non-Af 65, BUN/Creatinine Ratio 31.0 H, Glucose 103, Calcium 8.3 L Micro: Microbiology 01/29/24 09:10 Mucosa - Nose Coronavirus COVID-19 PCR - Final ABG Data ABG results: ABG 01/31/24 09:10 Specimen Type ART Sample Site L Radial pH 7.50 H Bicarbonate Actual 40.8 H Total CO2 42 Base Excess 18 H O2 Saturation 92 L O2 % 4.0 ABG pCO2 51.8 H ABG pO2 59 L Brian Test Positive O2 Delivery Device Cannula Vent Mode Not entered Physical Exam Narrative alert, oriented x3 and no apparent distress General Appearance: cooperative, well kempt and well developed Orientation / Consciousness: awake, oriented to person, oriented to place and oriented to time HEENT normocephalic, head/scalp atraumatic, hearing grossly normal bilaterally and moist oral mucous membranes Eyes PERRL, EOMs intact bilaterally and conjunctivae normal Neck supple, no JVD, thyroid normal and no carotid bruits General: trachea midline Resp normal respiratory effort, no retractions and no use of accessory muscles Resp Narrative: Inspiratory rales were noted at the bases bilaterally Auscultation: rales bilateral; Negative for rhonchi or wheezes Cardio regular rate, regular rhythm, S1 normal heart sound, S2 normal heart sound, no murmurs, no rub and no gallops GI normal to inspection, nondistended, normoactive bowel sounds, soft to palpation, non-tender and non-distended Extremity no clubbing, cyanosis or edema Skin no rashes or lesions noted General Skin Exam: no breakdown Neuro oriented x3, CN's II-XII intact bilaterally, moves all extremities, no focal motor deficits and no sensory deficits noted Sensorium / Orientation: awake and alert Speech: speech normal Psych affect normal Assessment & Plan Assessment/Plan (1) Hypoxia: (2) CHF (congestive heart failure): PLAN: Plan 1. Acute on chronic diastolic congestive heart failure-patient's last echocardiogram showed a normal EF, I will repeat a limited echocardiogram, patient had a satisfactory diuresis over the last 48 hours, I have elected to stop her IV Lasix at this time and reevaluate her tomorrow morning #2 chronic pulmonary fibrosis-complicates care, management, recovery, and prognosis #3 chronic obstructive pulmonary disease with small airways obstruction-patient will continue DuoNeb aerosols #4 hypoxia-patient's pulse ox will be monitored, oxygen will be adjusted as needed, patient is told me she does not want to wear oxygen as an outpatient. Total clinical time spent by myself addressing the patient's medical issues, reviewing all of her data, and collaborating with patient's care team: 35 minutes Charges/Coding Visit Charges Inpatient E&M: 25493 Subs Hosp L2
[2024-02-01] VITALS (9 sets, daily range): BP systolic 104–117; BP diastolic 64–77; PULSE 90–104; RESP 18–20; TEMP 36.6–36.9; O2SAT 77–95; BMI 25.4
--- NOTE | 2024-02-01 07:27 | CPS ---
Walked into room, pt had NC on top of her head, face was mildly blanc. RT placed NC on pt correctly, SpO2 increased over 45 seconds to 95% and pt's color was no longer blanc. RT educated pt on the importance of putting NC back in her nose after blowing it.
[2024-02-01] MEDS: Ipratropium/Albuterol Sulfate 3 ML AMPUL.NEB INHALATION (07:29)
[2024-02-01] MEDS: Heparin Injection (Vial) 5,000 UNIT/ML VIAL 5000 UNIT SC (08:46)
[2024-02-01] MEDS: Aspirin E.C. 81 MG Tablet PO (08:46)
--- NOTE | 2024-02-01 09:50 | DCINST_ITS ---
Discharge Instructions Diet Discharge Diet: No restrictions Activity Discharge Activity: Return to Normal Activity Weight Bearing Status: Full weight bearing Follow Up Care Test Results: Test results from this visit will be discussed in further detail at your follow- up appointment, if applicable. Discharge Plan Admission Admit Date/Time: 01/29/24 10:13 Primary Reason for Your Visit: CHF Attending Provider: Gerardo Mullins Primary Care Provider: Makenzie Loyola Instructions Forms: Work / School Excuse Discharge Orders/Prescriptions Prescriptions: New furosemide [Lasix] 40 mg tablet 40 mg PO BID Qty: 60 1RF potassium chloride 10 mEq tablet,ER particles/crystals 20 meq PO DAILY Qty: 60 1RF Continued multivitamin [Daily Multi-Vitamin] tablet 1 tab PO DAILY ibuprofen 200 mg capsule 600 mg PO Q8H PRN (Reason: pain) Rx Instructions: Pt takes varying dose, based on pt's decision. biotin 1 tab PO DAILY Patient Comments: PT DOESNT KNOW STRENGTH OF MED. ascorbate calcium (vitamin C) 500 mg tablet 500 mg PO DAILY Referrals / Follow Up: Makenzie Loyola MD [Primary Care Provider] - Within 2 Weeks Disposition Disposition (needs filled in before D/C Order can be placed): Home, Self Care
--- NOTE | 2024-02-01 09:55 | PCM.DC.SUM ---
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 Acute on chronic diastolic congestive heart failure-patient's last echocardiogram showed a normal EF, I will repeat a limited echocardiogram, patient had a satisfactory diuresis over the last 48 hours, I have elected to stop her IV Lasix at this time and reevaluate her tomorrow morning #2 chronic pulmonary fibrosis-complicates care, management, recovery, and prognosis #3 chronic obstructive pulmonary disease with small airways obstruction-patient will continue DuoNeb aerosols #4 hypoxia-patient's pulse ox will be monitored, oxygen will be adjusted as needed, patient is told me she does not want to wear oxygen as an outpatient. #5 noncompliance with suggested supplemental oxygen usage Total clinical time spent by myself addressing the patient's medical issues, reviewing all of her data, and collaborating with patient's care team: 35 minutes Medications at Discharge Home Medications ibuprofen 200 mg capsule 600 mg PO Q8H PRN pain 07/17/18 multivitamin (Daily Multi-Vitamin tablet) 1 tab PO DAILY vitamin 07/17/18 ascorbate calcium (vitamin C) 500 mg tablet 500 mg PO DAILY vitamin 01/29/24 biotin 1 tab PO DAILY HAIR SKIN AND NAILS 01/29/24 furosemide 40 mg tablet (Lasix) 40 mg PO BID #60 tabs 02/01/24 potassium chloride 10 mEq tablet,extended release(part/cryst) 20 meq (2 x 10 mEq) PO DAILY #60 tabs 02/01/24 Hospital Course Operations None Procedures None Summary of Care Provided Minutes Spent on Discharge: 32 Hospital Course: This 73-year-old white female was seen in the emergency room at [facility] with a chief complaint of increased shortness of breath over 2 weeks. Patient works full-time at a job and does not wear oxygen, she has a previous history of lung disease and is supposed to follow-up with pulmonary medicine but told pulmonary medicine at her last appointment that she did not want home oxygen. Patient had recently been discharged AMA from the hospital in August after coming in for shortness of breath. Patient had declined further workup at that time for a right lower lobe infiltrate versus mass. Chest x-ray obtained and the emergency room showed evidence of congestive heart failure and pulmonary fibrosis, patient required supplemental oxygen to maintain her pulse ox above 90%. Patient was admitted to PCU and placed on IV diuresis, she received aerosol treatments and was seen in consultation by pulmonary medicine. Several conversations were carried out with the patient about use of supplemental oxygen at home, she declined every time the subject was brought up. Pulmonary medicine also stated that they brought up oxygen usage at home and she declined it. On 02/01/2024, patient was seen and examined: On examination she appeared in good health and spirits, she does not appear to be in any distress. Vital signs as documented. Skin warm and dry and without overt rashes. Neck without JVD, thyroid appears normal, trachea is midline, neck is supple. Lungs clear, normal air movement was noted. Heart exam notable for regular rhythm, normal sounds and absence of murmurs, rubs or gallops. Abdomen unremarkable and without evidence of organomegaly, masses, or abdominal aortic enlargement, bowel sounds are present in all 4 quadrants, no abdominal tenderness was noted. Extremities nonedematous, no cyanosis was noted, no clubbing was noted. Neuro: Cranial nerves II through XII are grossly intact, no focal motor deficits were noted, sensation to light touch and pinprick is intact, motor exam 5/5 throughout. Psych: Patient is alert and oriented x3, she does not appear anxious or depressed, she does not appear agitated. Ambulatory pulse ox done on 02/01/2024 revealed that the patient required 8 L of oxygen on ambulation and 4 L at rest, had a discussion with her about home oxygen use and again she declined having oxygen set up at home or using oxygen as an outpatient. On 02/01/2024, patient was discharged home in stable condition Weight / BMI Weight Weight: 65.1 kg Body Mass Index (BMI) 25.4 ABG / Lab / Microbiology Data 01/29/24 09:04 01/31/24 06:40 Microbiology: Microbiology 01/29/24 09:10 Mucosa - Nose Coronavirus COVID-19 PCR - Final D/C Instructions Discharge Diet: No restrictions Weight Bearing Status: Full weight bearing Meaningful Use Info Meaningful Use Meaningful Use Diagnoses (Choose all that apply): None applicable Ischemic Stroke Statin Dosing Therapy Reference: STATIN DOSE THERAPY REFERENCE: * Patients > 75 years receive moderate or high dose statin therapy. * Patients 75 years or YOUNGER should receive HIGH intensity statin dose unless contraindicated. You will be required to document reason for non-treatment if statin daily dose does not meet guidelines. HIGH DOSE STATIN THERAPY DAILY Atorvastatin > than or = to 40 mg Rosuvastatin > than or = to 20 mg Amlodipine + Atorvastatin > than or = to 2.5/40 mg Ezetimibe + Simvastatin 10/80 mg Simvastatin 80mg Discharge Plan Admission Admit Date/Time: 01/29/24 10:13 Primary Reason for Your Visit: CHF Attending Provider: Gerardo Mullins Primary Care Provider: Makenzie Loyola Instructions Forms: Work / School Excuse Discharge Orders/Prescriptions Prescriptions: New furosemide [Lasix] 40 mg tablet 40 mg PO BID Qty: 60 1RF potassium chloride 10 mEq tablet,ER particles/crystals 20 meq PO DAILY Qty: 60 1RF Continued multivitamin [Daily Multi-Vitamin] tablet 1 tab PO DAILY ibuprofen 200 mg capsule 600 mg PO Q8H PRN (Reason: pain) Rx Instructions: Pt takes varying dose, based on pt's decision. biotin 1 tab PO DAILY Patient Comments: PT DOESNT KNOW STRENGTH OF MED. ascorbate calcium (vitamin C) 500 mg tablet 500 mg PO DAILY Referrals / Follow Up: Makenzie Loyola MD [Primary Care Provider] - Within 2 Weeks Disposition Disposition (needs filled in before D/C Order can be placed): Home, Self Care Charges/Coding Visit Charges Inpatient E&M: 51187 Disch Hosp >30min
--- NOTE | 2024-02-01 13:25 | NURSING ---
Home oxygen qualification - Patient's O2 sat is at 92-93% at rest on 4L and requires 8L when ambulating however she refuses oxygen at discharge. She does not wear oxygen at home.
== END 2024-02-01 13:37 | disposition home or self-care (01) | DRG 291 ==
LOC: ED 10:32 → PCU 10:35
PROVIDERS: Admitting Provider Internal Medicine; Emergency Provider Emergency Medicine; PCP Family Medicine; Visit Provider Internal Medicine
DX: I11.0 Hypertensive heart disease with heart failure (principal); I50.33 Acute on chronic diastolic (congestive) heart failure; J96.21 Acute and chronic respiratory failure with hypoxia; I27.81 Cor pulmonale (chronic); J84.10 Pulmonary fibrosis, unspecified; J44.9 Chronic obstructive pulmonary disease, unspecified; E01.0 Iodine-deficiency related diffuse (endemic) goiter; M16.11 Unilateral primary osteoarthritis, right hip; F17.210 Nicotine dependence, cigarettes, uncomplicated; D75.1 Secondary polycythemia; G44.009 Cluster headache syndrome, unspecified, not intractable; N63.0 Unspecified lump in unspecified breast; R91.8 Other nonspecific abnormal finding of lung field; Z79.1 Long term (current) use of non-steroidal anti-inflammatories (NSAID); Z91.199 Patient's noncompliance with other medical treatment and regimen due to unspecified reason; R68.3 Clubbing of fingers
CPT/HCPCS: 36415; 36600; 71046; 73502; 80048; 82803; 83880; 85025; 87635; 93005; 93308; 94640; 94762; 99285; 99406; A4216; J1940